=== PATIENT | female | born 1955 | race Caucasian/White ===

== ENCOUNTER → 2018-05-01 10:23 | Outpatient (CLI) | payer MEDICARE, OTHER, SELFPAY ==
--- NOTE | 2018-05-01 10:37 | DI.RAD.S_ITS ---
PROCEDURE: XR CHEST 2V INDICATIONS: chest pain TECHNIQUE: 2 views of the chest were acquired. COMPARISON: [facility], , ABDOMEN ACUTE SERIES, 01/27/2018, 10:01. FINDINGS: Surgical changes and devices: Surgical clips right upper quadrant Lungs and pleura: No pleural effusions or pneumothorax. Lungs are clear. Mediastinum: Mediastinal contours are normal. Heart size is normal. Bones and chest wall: No suspicious bony abnormalities. Marked dextroconvex lower thoracic scoliosis. Soft tissues appear unremarkable. IMPRESSION: 1. No acute cardiopulmonary abnormality. 2. Scoliosis. Dictated by: Andrea Robles M.D. on 05/01/2018 at 10:51 Approved by: Andrea Robles M.D. on 05/01/2018 at 10:53
[2018-05-01 10:51] LABS: Hematocrit 39.7 % (36-46); Hemoglobin 13.3 g/dL (12.0-16.0); Mean Corpuscular HGB Conc 33.6 % (30-36); Mean Corpuscular Hemoglobin 30.4 PG (26-34); Mean Corpuscular Volume 90.2 fL (80-100); Platelet Count 202 X10^3/uL (150-400); Red Cell Distribution Width 13.3 % (11.6-14.8)
[2018-05-01 11:02] LABS: Anisocytosis 1+; Neutrophils Absolute Manual 2550 /uL (3000-5900); Poikilocytosis 1+; Total Cells Counted 100
[2018-05-01 11:15] LABS: Alanine Aminotransferase 21 IU/L (9-52); Albumin 3.9 g/dL (3.5-5.0); Albumin Globulin Ratio 1.3 (1.0-2.8); Alkaline Phosphatase 60 U/L (38-126); Aspartate Aminotransferase 24 IU/L (14-36); BUN Creatinine Ratio 22.5 (6-22); Bilirubin Total 0.3 mg/dL (0.2-1.3); Blood Urea Nitrogen 18 mg/dL (7-17); Calcium 9.2 mg/dL (8.4-10.2); Carbon Dioxide 28 mmol/L (22-32); Chloride 107 mmol/L (98-107); Estimated Glomerular Filt Rate > 60.0 mL/min (>60); Glucose 108 mg/dL (80-110); HEMOLYSIS < 15 (0-50); Potassium 3.9 mmol/L (3.4-5.1); Sodium 143 mmol/L (137-145); Total Protein 6.9 g/dL (6.3-8.2)
[2018-05-01 11:42] LABS: TSH w/ Reflex to FT4 3.17 uIU/mL (0.47-4.68)
== END ==
PROVIDERS: Family Provider Family Medicine; PCP Family Medicine; Visit Provider Family Medicine
DX: R07.9 Chest pain, unspecified (principal); R00.2 Palpitations
CPT/HCPCS: 36415; 71046; 80053; 84443; 85025

== ENCOUNTER → 2018-05-19 13:05 | Outpatient (CLI) | payer MEDICARE, OTHER, SELFPAY ==
--- NOTE | 2018-05-19 17:07 | PM.TREADMILL ---
Cardiac Stress Test Report Referral & Results Date Patient Seen: 05/19/18 Requesting provider: Karuna Langley Indication: Chest pain Rest ECG: Unremarkable Procedure Note: Today following both written and verbal informed consent the patient was exercised according to a standard Delroy protocol patient went for a total of 6 min 1 sec achieving a maximum heart rate of 153 maximum systolic blood pressure of 150 to. This is approximately 7.0 METS. Exercise was terminated at this point because of inability the patient to continue. Patient was also given Cardiolite through a previously started Hep-Lock IV by the non licensed nuclear plant operator approximately 1 minute prior to the cessation of exercise. There are no ST-T segment changes Normal heart rate and blood pressure response Functional aerobic impairment rated 0 on the active scale No obvious dysrhythmias. Lots of motion artifact during exercise portion of test making subtle dysrhythmia difficult to identify Impression: No ischemic changes Await perfusion imaging which will be reported separately Please note: Actual ECG tracings can be found in the PACS system.
--- NOTE | 2018-05-23 07:56 | DI.NM.S_ITS ---
DATE OF SERVICE: 05/19/2018 PROCEDURE: Exercise perfusion study. INDICATIONS: Chest pain with family history of coronary artery disease. RADIOPHARMACEUTICAL: 25.0 mCi technetium-99m Myoview IV was injected at stress and 24.3 mCi technetium-99m Myoview IV was injected at rest. CARDIAC STRESS: Patient underwent exercise perfusion study under the supervision of an attending staff using a standard Delroy protocol. Patient walked on Delroy protocol for about 6 minutes 01 seconds and achieved maximum heart rate of 153 which was 99% of target heart rate with normal blood pressure response. Patient fell fatigue during exercise. Baseline EKG revealed sinus rhythm. During stress, there was no obvious inducible ischemic changes. Baseline EKG also revealed RsR-complex in V1 to V2 and inferiorly with overall low-voltage complexes. No new significant arrhythmias seen. Patient achieved 7 METs of workload, positive 5% of functional aerobic impairment. RAW DATA: There was an increase of diaphragmatic activity. GATED STUDY: Stress LV ejection fraction 94 and resting LV ejection fraction 91%. No obvious wall motion abnormalities. Resting LV end-diastolic volume is 43 mL. No transient ischemic dilatation. TID ratio is 0.61, which is within normal limits. Lung/heart ratio is 0.38, which is within normal limits. MYOCARDIAL PERFUSION SCAN: Resting supine images revealed small-sized mildly decreased perfusion of inferior wall, inferoapex which got resolved during prone images. Stress supine images also revealed normal myocardial perfusion. CONCLUSION: This is a normal myocardial perfusion study. Patient walked on Delroy protocol for about 6 minutes 01 seconds and achieved 99% of target heart rate and normal blood pressure response. No obvious ischemic changes. As far as perfusion scan is concerned, this is a low-risk myocardial perfusion scan. Kim Rico - COUNTY ATTORNEY/jeffery/ab doc#: [id number]/job#: [id number] dd: 05/22/2018 16:23:00 dt: 05/22/2018 16:32:00 DICTATING MD/COPIES TO: Mihai Bird MD COPIES MNE: KETURAH
== END ==
PROVIDERS: PCP Family Medicine; Visit Provider Family Medicine
DX: R07.9 Chest pain, unspecified (principal)
CPT/HCPCS: 78452; 93016; 93017; 93018; A9502

== ENCOUNTER → 2018-07-25 11:59 | Outpatient (CLI) | payer MEDICARE, OTHER, SELFPAY ==
--- NOTE | 2018-08-11 16:23 | P.HOLT.S_ITS ---
Central Station Operator Report Referral & Results Date Patient Seen: 07/25/18 Requesting provider: Martha Chowdary Indication: Palpitations Duration of monitoring (days): 7 Diary information: There were no patient diary entries There is 1 triggered events associated with sinus rhythm and a PAC Data: Minimum heart rate identified was 60 beats per minute at 01:38 on 2017 Maximum heart rate was 152 beats per minute at 11:22 on 07/26/2018 There were no PVCs identified For PACs were rare comprising less than 1% of identified beats There was 1 run of a atrial tachycardia that was 8 beats in duration at a rate of 132 beats per minute 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 No etiology for patient's reported symptom of palpitations identified with this study.
== END ==
PROVIDERS: PCP Family Medicine; Visit Provider Nurse Practitioner Family
DX: R00.2 Palpitations (principal)
CPT/HCPCS: 0296T; 0298T

== ENCOUNTER → 2018-12-13 11:27 | Outpatient (CLI) | payer MEDICARE, OTHER, SELFPAY ==
[2018-12-13 12:05] LABS: Influenza A and B by PCR Rapid Negative (Negative)
== END ==
PROVIDERS: PCP Family Medicine; Visit Provider Nurse Practitioner
DX: R05 Cough (principal); R50.9 Fever, unspecified
CPT/HCPCS: 87400

== ENCOUNTER → 2018-12-13 11:42 | Outpatient (CLI) | payer MEDICARE, OTHER, SELFPAY ==
--- NOTE | 2018-12-13 11:44 | DI.RAD.S_ITS ---
PROCEDURE: XR CHEST 2V INDICATIONS: Productive cough x1 week, febrile illness, chills TECHNIQUE: 2 views of the chest were acquired. COMPARISON: [facility], MUKESH, XR CHEST 2V, 05/01/2018, 10:16. [facility], MUKESH, CHEST FOR PICC PLACEMENT, 05/10/2017, 18:35. FINDINGS: Surgical changes and devices: None. Lungs and pleura: Lungs are clear. No pleural effusions or pneumothorax. Mediastinum: Mediastinal contours are normal. Heart size is normal. Bones and chest wall: No suspicious bony abnormalities. Soft tissues appear unremarkable. IMPRESSION: Normal for age, source of current cough symptoms is not seen. Stable appearing dextroscoliosis centered at the junction of the middle and lower thirds of the thoracic spine. Dictated by: Herb Garcia M.D. on 12/13/2018 at 13:03 Approved by: Herb Garcia M.D. on 12/13/2018 at 13:04
== END ==
PROVIDERS: PCP Family Medicine; Visit Provider Nurse Practitioner
DX: R05 Cough (principal); M41.84 Other forms of scoliosis, thoracic region; R50.9 Fever, unspecified
CPT/HCPCS: 71046; 87400

== ENCOUNTER → 2019-01-29 12:45 | Outpatient (CLI) | payer MEDICARE, OTHER, SELFPAY ==
--- NOTE | 2019-01-29 12:47 | DI.RAD.S_ITS ---
PROCEDURE: XR FOOT RT MIN 3V INDICATIONS: right heel pain TECHNIQUE: 3 views of the foot were acquired. COMPARISON: None. FINDINGS: Bones: No fractures or dislocations. No suspicious bony lesions. Soft tissues: No tibiotalar joint effusion. Achilles tendon appears normal. IMPRESSION: There is a small plantar fascial insertion spur at the posterior calcaneus, and no trauma found. Dictated by: Herb Garcia M.D. on 01/29/2019 at 13:48 Approved by: Herb Garcia M.D. on 01/29/2019 at 13:48
--- NOTE | 2019-01-29 12:47 | DI.MG.S_ITS ---
BILATERAL DIGITAL SCREENING MAMMOGRAM 3D/2D WITH CAD: 01/29/2019 CLINICAL: Routine screening. Comparison is made to exam dated: 08/20/2013 mammogram - [facility]. There are scattered fibroglandular elements in both breasts. Current study was also evaluated with a Computer Aided Detection (CAD) system. No significant masses, calcifications, or other findings are seen in either breast. There has been no significant interval change. IMPRESSION: NEGATIVE There is no mammographic evidence of malignancy. A 1 year screening mammogram is recommended. This exam was interpreted at Station ID: [id number]. NOTE: For mammograms, a report in lay terms will be sent to the patient. Approximately 15% of breast malignancies will not be visualized mammographically. In the management of a palpable breast mass, a negative mammogram must not discourage biopsy of a clinically suspicious lesion. Electronically Signed By: Kathy pagan/ana:01/29/2019 16:25:42 letter sent: Normal Exam ACR BI-RADS Category 1: Negative [id number]
== END ==
PROVIDERS: PCP Family Medicine; Visit Provider Family Medicine
DX: Z12.31 Encounter for screening mammogram for malignant neoplasm of breast (principal); M79.671 Pain in right foot; M77.31 Calcaneal spur, right foot; M81.0 Age-related osteoporosis without current pathological fracture; Z78.0 Asymptomatic menopausal state; Z82.62 Family history of osteoporosis
CPT/HCPCS: 73630; 77063; 77067; 77080

== ENCOUNTER → 2019-03-01 10:15 | Outpatient (CLI) | payer MEDICARE, OTHER, SELFPAY ==
[2019-03-01 11:29] LABS: Alanine Aminotransferase 20 IU/L (9-52); Albumin Globulin Ratio 1.4 (1.0-2.8); Alkaline Phosphatase 58 U/L (38-126); Aspartate Aminotransferase 24 IU/L (14-36); Bilirubin Total 0.5 mg/dL (0.2-1.3); Blood Urea Nitrogen 16 mg/dL (7-17); Calcium 9.5 mg/dL (8.4-10.2); Carbon Dioxide 29 mmol/L (22-32); Chloride 105 mmol/L (98-107); Estimated Glomerular Filt Rate > 60.0 mL/min (>60); Globulin 2.9 g/dL (1.7-4.1); Glucose 80 mg/dL (80-110); HEMOLYSIS < 15 (0-50); Potassium 4.4 mmol/L (3.4-5.1); Sodium 140 mmol/L (137-145); Total Protein 6.9 g/dL (6.3-8.2)
[2019-03-01 11:39] LABS: Vitamin D 25 Hydroxy (D3) 30.3 ng/mL (30.0-100.0)
== END ==
PROVIDERS: PCP Family Medicine; Visit Provider Family Medicine
DX: M81.0 Age-related osteoporosis without current pathological fracture (principal)
CPT/HCPCS: 36415; 80053; 82306

== ENCOUNTER → 2019-11-29 09:17 | Outpatient (CLI) | payer MEDICARE, OTHER, SELFPAY ==
--- NOTE | 2019-11-29 09:19 | DI.MRI.S_ITS ---
PROCEDURE: MR HEAD/BRAIN WO/W CON INDICATIONS: increase in headaches and intensity TECHNIQUE: Noncontrast axial T1 spin echo, axial T2 fast spin echo, sagittal and axial FLAIR, coronal T2 fast spin echo, axial gradient echo, axial diffusion and ADC through the brain. After the administration of contrast, axial and coronal T1 spin echo with fat saturation through the brain. COMPARISON: None. FINDINGS: Image quality: Excellent. CSF spaces: Basal cisterns are patent. No extra-axial fluid collections. Ventricles are normal in size and shape. Brain: No midline shift. No intracranial bleeds or masses. No abnormal intracranial enhancement. There is cerebral volume loss for age. There is periventricular white matter chronic small vessel ischemic change. The brainstem appears normal. Diffusion-weighted images demonstrate no acute ischemic insults. No chronic ischemic insults. Normal intravascular flow voids are present. Skull and face: Calvarial marrow is normal in signal. Orbits appear normal. Sinuses: Sinuses and mastoids appear clear. The right sided barby bullosa is seen. There is mild to moderate leftward nasal septal deviation incidentally noted. IMPRESSION: Unremarkable intracranial study, without an imaging explanation found for the patient's presenting history of headache. Dictated by: Дмитрий Mcmillan M.D. on 11/29/2019 at 9:19 Approved by: Дмитрий Mcmillan M.D. on 11/29/2019 at 9:29
== END ==
PROVIDERS: PCP Family Medicine; Referring Provider Family Medicine; Visit Provider Family Medicine
DX: G43.909 Migraine, unspecified, not intractable, without status migrainosus (principal)
CPT/HCPCS: 70553

== ENCOUNTER → 2020-01-31 10:15 | Outpatient (CLI) | payer MEDICARE, OTHER, SELFPAY ==
[2020-01-31 11:29] LABS: Add Manual Diff / Slide Review NO; Basophils Absolute Auto 0 /uL (0-100); Basophils Percent Auto 0.6 % (0-2); Eosinophils Absolute Auto 200 /uL (0-450); Eosinophils Percent Auto 3.2 % (2-4); Hematocrit 40.2 % (36-46); Hemoglobin 13.9 g/dL (12.0-16.0); Lymphocytes Absolute Auto 1600 /uL (1100-4500); Lymphocytes Percent Auto 29.1 % (25-40); Mean Corpuscular HGB Conc 34.5 % (30-36); Mean Corpuscular Hemoglobin 31.6 PG (26-34); Mean Corpuscular Volume 91.6 fL (80-100); Monocytes Absolute Auto 500 /uL (0-900); Monocytes Percent Auto 8.4 % (3-14); Neutrophils Absolute Auto 3300 /uL (1500-7000); Neutrophils Percent Auto 58.7 % (50-75); Platelet Count 222 X10^3/uL (150-400); Red Blood Cell Count 4.39 X10^6/uL (4.0-5.2); Red Cell Distribution Width 13.7 % (11.6-14.8); White Blood Cell Count 5.5 X10^3/uL (4.5-11.0)
[2020-01-31 12:08] LABS: Alanine Aminotransferase 20 IU/L (<35); Albumin 3.6 g/dL (3.5-5.0); Albumin Globulin Ratio 1.2 (1.0-2.8); Alkaline Phosphatase 68 U/L (38-126); Aspartate Aminotransferase 23 IU/L (14-36); BUN Creatinine Ratio 25.7 (6-22); Bilirubin Total 0.3 mg/dL (0.2-1.3); Blood Urea Nitrogen 19 mg/dL (7-17); Calcium 9.3 mg/dL (8.4-10.2); Carbon Dioxide 26 mmol/L (22-32); Chloride 108 mmol/L (98-107); Estimated Glomerular Filt Rate > 60.0 mL/min (>60); Globulin 3.1 g/dL (1.7-4.1); Glucose 90 mg/dL (80-110); HEMOLYSIS < 15 (0-50); Potassium 3.9 mmol/L (3.4-5.1); Sodium 139 mmol/L (137-145); Total Protein 6.7 g/dL (6.3-8.2)
[2020-01-31 12:44] LABS: Ferritin 11 ng/mL (11-264)
== END ==
PROVIDERS: PCP Family Medicine; Referring Provider Family Medicine; Visit Provider Family Medicine
DX: L65.9 Nonscarring hair loss, unspecified (principal); R53.83 Other fatigue
CPT/HCPCS: 36415; 80053; 82728; 84443; 85025

== ENCOUNTER 2020-02-11 16:26 | Emergency (ER) | payer MEDICARE, OTHER, SELFPAY ==
[2020-02-11 16:39] VITALS: BP 115/64; PULSE 75; RESP 20; TEMP 36.4; O2SAT 96
[2020-02-11] MEDS: TET,DIPH,PERTUSS(ACELL),VAC/PF 0.5 ML SYRINGE IM (17:33)
--- NOTE | 2020-02-11 17:48 | ED_ITS ---
HPI - Wound/Laceration <MITCHELL Ashford - Last Filed: 02/12/20 00:10> General Chief Complaint: Wound/Laceration Stated Complaint: Has A Hole In Head Time Seen by Provider: 02/11/20 16:53 Source: patient Mode of arrival: Ambulatory Limitations: no limitations History of Present Illness HPI narrative: This is a 64-year-old female, former smoker, who presents to ED with her daughter with chief complain of small laceration to right-sided scalp. Patient reports she was standing too close to the car and when her opened norris back the corner of car door hit her right-side of head. Patient is unsure of last tetanus immunization. Patient denies on blood thinner. Patient denies loss of consciousness, vomiting, vision change, mid cervical tenderness. Patient has been acting her normal since the injury. Related Data Previous Rx's Medication Instructions Recorded sumatriptan succinate 25 mg tablet 25 mg PO QDAY PRN #9 tab 09/04/18 duloxetine 60 mg capsule,delayed 60 mg PO DAILY #90 cap 03/01/19 release duloxetine 30 mg capsule,delayed 30 mg PO DAILY #90 cap 06/04/19 release sumatriptan succinate 100 mg tablet See Rx Instructions PO .COMPLEX 07/12/19 #10 tab trazodone 100 mg tablet See Rx Instructions .ROUTE 07/19/19 .COMPLEX #90 tablet propranolol 120 mg capsule,24 120 mg PO DAILY #60 cap 10/12/19 hr,extended release tramadol 50 mg tablet 50 mg PO DAILY PRN #30 tab 01/31/20 Allergies Allergy/AdvReac Type Severity Reaction Status Date / Time aspirin [ASPIRIN] AdvReac Intermediate stomach Verified 10/23/19 10:41 upset ibuprofen [IBUPROFEN] AdvReac Intermediate stomach Verified 10/23/19 10:41 upset codeine [CODEINE] AdvReac Mild doesn't Verified 10/23/19 10:[address] it makes her feel Review of Systems <MITCHELL Ashford - Last Filed: 02/12/20 00:10> Review of Systems Narrative: General: Denies fever, chills, fatigue, malaise, sweats. HEENT: Denies sinus pain, ear pain, sore throat, difficulty swallowing, dizziness. Respiratory: Denies dyspnea, cough, wheezing, hemoptysis, sputum. Cardiovascular: Denies chest pain, palpitations, orthopnea, edema. Gastrointestinal: Denies nausea, vomiting, abdominal pain, diarrhea, constipation, melena. : Denies dysuria, frequency, incontinence, hematuria, urinary retention. Musculoskeletal: Denies weakness, joint pain or bony pain. Skin: See HPI Neurologic: Denies weakness, (+) headache, numbness, change in speech, confusion, seizures, incoordination. Psychiatric: No concerning psychosocial issues. 12-point review of systems is negative except for those stated above. Patient History <MITCHELL Ashford - Last Filed: 02/12/20 00:10> Medical History Anemia (Resolved 2002) Anxiety (Chronic) Chronic back pain (Chronic ~2001) Depression (Chronic) Fibroids (Resolved 2002) Hayfever (Chronic) Hemorrhoids (Resolved) History of live (Resolved) Insomnia (Chronic) Intussusception (Acute) Migraines (Chronic ~2014) Osteoarthritis (Chronic) Scoliosis (Chronic) Shoulder pain (Chronic) Tinnitus (Chronic) Surgical History Anesthesia (Resolved) History of dilation and curettage (Resolved 2002) History of laparoscopy (Resolved) Hx of cholecystectomy (Acute) S/P cholecystectomy (Resolved) S/P small bowel resection (Resolved) Family History Mother Heart disease CVA (cerebral vascular accident) COPD (chronic obstructive pulmonary disease) Brother Liver failure Brother Drowned Grandmother No problems noted. Grandfather No problems noted. Social History marital status: number of children: 5 household members: spouse lives independently: Yes caregiver/support person: Yes (Daughter, Antonia Oscar) education level: other (GED) occupational status: other (retired) Smoking Status: Former smoker alcohol intake: current (rare) substance use type: does not use Smoking Status: Former smoker Exam <MITCHELL Ashford - Last Filed: 02/12/20 00:10> Narrative Exam Narrative: General appearance: well developed, well nourished, in no acute distress. Head: normocephalic, no step-offs, 1.5 cm laceration in right parietal lobe, tender to palpate, no active bleeding.. ENT: Bilateral auditory canals free from clear drainage. Hearing grossly intact. Nose without bleeding, purulent discharge or drainage. Mucous membrane moist, no mucosal lesion. Throat without erythema, tonsillar hypertrophy or exudate. Uvula in midline, airway patent. Neck/Thyroid: neck supple, full range of motion, no visible masses or meningeal signs, no step-offs. No JVD, non-tender without lymphadenopathy. Skin: Approximate 1.5 cm laceration to right parietal lobe. No suspicious rashes, lesions over other visible areas. Warm and dry and appropriate color for ethnicity. Heart: no clubbing, no cyanosis, no edema. S1 and S2 normal. RRR w/o murmurs, clicks, or bruits. Lungs: Breathing even and unlabored. No stridor. No accessory muscles used. Able to speak in full sentences. Chest: normal shape and expansion. Abdomen: non-obese, non-distended. Neurologic: alert and oriented. 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 Psych: good eye contact, normal affect. Initial Vital Signs Initial Vital Signs: Vital Signs Temperature 97.5 F L 02/11/20 16:39 Pulse Rate 75 02/11/20 16:39 Respiratory Rate 20 02/11/20 16:39 Blood Pressure 115/64 02/11/20 16:39 Pulse Oximetry 96 02/11/20 16:39 <Brandon Petty MD - Last Filed: 02/12/20 08:27> Initial Vital Signs Initial Vital Signs: Vital Signs Temperature 97.5 F L 02/11/20 16:39 Pulse Rate 75 02/11/20 16:39 Respiratory Rate 20 02/11/20 16:39 Blood Pressure 115/64 02/11/20 16:39 Pulse Oximetry 96 02/11/20 16:39 Procedures <MITCHELL Ashford - Last Filed: 02/12/20 00:10> Laceration Repair Laceration 1: Site: scalp Side (If applicable): right (Parietal lobe) Size (cm): 1.5 Description: irregular Local Anesthetic: lidocaine 1% and with bicarb Amount of anesthesia used (mL): 2 Pre-repair: wound explored and irrigated extensively Skin layer closed with: j[place] (2) Scores <MITCHELL Ashford - Last Filed: 02/12/20 00:10> GCS Von coma scale eye opening: Spontaneous Elliott coma scale verbal response: Orientated Von coma scale motor response: Obey commands Von coma scale total score: 15 Course <MITCHELL Ashford - Last Filed: 02/12/20 00:10> Orders Ordered: Discontinued Medications Bacitracin (Bacitracin) 1 applic TOP NOW ONE Stop: 02/11/20 17:19 Diphtheria/Tetanus/Acell Pertussis (Adacel) 0.5 ml IM .ONCE ONE Stop: 02/11/20 17:19 Last Admin: 02/11/20 17:33 Dose: 0.5 ml Documented by: BELGICA Lidocaine/Sodium Bicarbonate (Buffered Lidocaine 10 Ml Syr) 10 ml INJ NOW ONE Stop: 02/11/20 17:19 Vital Signs Vital signs: Vital Signs - 8 hr 02/11/20 16:39 Temperature 97.5 F L Pulse Rate 75 Respiratory Rate 20 Blood Pressure 115/64 Pulse Oximetry 96 <Brandon Petty MD - Last Filed: 02/12/20 08:27> Orders Ordered: Discontinued Medications Bacitracin (Bacitracin) 1 applic TOP NOW ONE Stop: 02/11/20 17:19 Diphtheria/Tetanus/Acell Pertussis (Adacel) 0.5 ml IM .ONCE ONE Stop: 02/11/20 17:19 Last Admin: 02/11/20 17:33 Dose: 0.5 ml Documented by: BELGICA Lidocaine/Sodium Bicarbonate (Buffered Lidocaine 10 Ml Syr) 10 ml INJ NOW ONE Stop: 02/11/20 17:19 Vital Signs Vital signs: Vital Signs - 8 hr 02/11/20 16:39 Temperature 97.5 F L Pulse Rate 75 Respiratory Rate 20 Blood Pressure 115/64 Pulse Oximetry 96 MDM - Wound/Laceration <MITCHELL Ashford - Last Filed: 02/12/20 00:10> Differential Diagnosis Differential diagnosis: Likely laceration and other (Closed head injury, scalp contusion, skull fracture) Medical Records Attestation: I reviewed the patient's medical records. MDM Narrative Medical decision making narrative: This is a 64 year female who had injured her right side of scalp with the laceration and contusion on the corner of norris back door when she stood to close to the car when her attempted to open the door. No neurological deficit was appreciated. Surrounding laceration was very tender to palpate without step-offs. Patient denies loss of consciousness, vision change, vomiting, unusual behavior, seizures. Laceration has been repaired with two j[place]ica and please see procedure and note. Bacitracin has been applied on affected site and return precautions were discussed with the patient including closed head injury precaution. Tdap has been updated today and staple removal in 7-10 days. Patient advised to use ice pack for next couple of days and to use [id number] Tylenol for pain management as needed. Patient verbalized understanding and in agreement with the treatment plan. Discharge Plan Departure Patient Disposition: Home Clinical Impression: Stapled skin wound Laceration of scalp Qualifiers: Encounter type: initial encounter Qualified Code(s): S01.01XA - Laceration without foreign body of scalp, initial encounter Closed head injury Qualifiers: Encounter type: initial encounter Qualified Code(s): S09.90XA - Unspecified injury of head, initial encounter Discharge Date/Time: 02/11/20 18:01 Instructions: DI for Laceration Repair -- [place], DI for Laceration Repair of the Scalp, DI for Closed Head Injury Activity Restrictions/Additional Instructions: You have been diagnosed with [right-sided parietal lobe scalp laceration approximately 1.5 cm which has been repaired with 2 j[place]. Tdap immunization has been updated today.]. What to do: Please do not get your wound soaked in the water until staple removal. You can shower or wash your hair after 24 hours. Pat dry with clean paper towel and dress it with antibiotic ointment. Please monitor for signs and symptoms for infection such as increasing redness, swelling, warmth, pain, fever, purulent discharge. Monitor for worsening headache, vision change, seizure activity, vomiting, unusual behavior or any acute concerns. If this occurs, please return to ED or follow up with your primary care physician since your wound may be gotten infected. Please follow up with your primary care provider in 2-3 days for recheck wound. Your jamaica should be removed [7-10 ] days. This can be done by your primary provider, walk-in clinic or here in ED. Please keep your wound clean, dry and intact all times. *Take your medications as directed. You can continue to use [id number] antibiotic ointment on affected site. You can take Tylenol for discomfort, 650- 1000 mg up to 3 to 4 times a day as needed. Prescriptions: No Action duloxetine 30 mg capsule,delayed release(DR/EC) 30 mg PO DAILY Qty: 90 RF: 2 duloxetine 60 mg capsule,delayed release(DR/EC) 60 mg PO DAILY Qty: 90 RF: 1 tramadol 50 mg tablet 50 mg PO DAILY PRN (Reason: pain) Qty: 30 RF: 0 trazodone 100 mg tablet See Rx Instructions .ROUTE .COMPLEX Qty: 90 RF: 2 propranolol 120 mg capsule,extended release 24 hr 120 mg PO DAILY Qty: 60 RF: 2 sumatriptan succinate [Imitrex] 25 mg tablet 25 mg PO QDAY PRN (Reason: migraine) Qty: 9 RF: 12 sumatriptan succinate 100 mg tablet See Rx Instructions PO .COMPLEX Qty: 10 RF: 2 Referrals: Rosa Israel DO [Primary Care Provider] -
== END 2020-02-11 18:01 | disposition home or self-care (01) ==
PROVIDERS: Emergency Provider Nurse Practitioner Family; PCP Family Medicine
DX: S01.01XA Laceration without foreign body of scalp, initial encounter (principal); S09.90XA Unspecified injury of head, initial encounter; W22.8XXA Striking against or struck by other objects, initial encounter; Z23 Encounter for immunization
CPT/HCPCS: 12001; 90471; 99283; 90715

== ENCOUNTER → 2020-08-18 11:31 | Outpatient (CLI) | payer MEDICARE, OTHER, SELFPAY ==
--- NOTE | 2020-08-18 11:35 | DI.RAD.S_ITS ---
PROCEDURE: XR CERVICAL SPINE 2V OR 3V INDICATIONS: Right knee pain, suspect arthritis TECHNIQUE: 3 view(s) of the cervical spine were acquired. COMPARISON: None. FINDINGS: Bones: No fractures or dislocations to the C7 level. The lateral masses of C1 appear intact on the odontoid view. No suspicious bony lesions. Mild degenerative change in the cervical spine. No osseous erosions identified. Soft tissues: No prevertebral soft tissue swelling. IMPRESSION: No acute osseous abnormality. Mild degenerative change in the cervical spine. Dictated by: Elroy Narayanan M.D. on 08/18/2020 at 13:10 Approved by: Elroy Narayanan M.D. on 08/18/2020 at 13:12
--- NOTE | 2020-08-18 11:35 | DI.RAD.S_ITS ---
PROCEDURE: XR KNEE RT 3V INDICATIONS: Right knee pain, suspect arthritis TECHNIQUE: 3 views of the knee were acquired. COMPARISON: None. FINDINGS: Bones: No fractures or dislocations. No suspicious bony lesions. No periosteal reaction. No osseous erosion seen. Soft tissues: No joint effusion. No suspicious soft tissue calcifications. IMPRESSION: No significant osseous abnormality. Dictated by: Elroy Narayanan M.D. on 08/18/2020 at 13:30 Approved by: Elroy Narayanan M.D. on 08/18/2020 at 13:31
== END ==
PROVIDERS: PCP Family Medicine; Referring Provider Family Medicine; Visit Provider Family Medicine
DX: M25.561 Pain in right knee (principal); M54.2 Cervicalgia; M47.812 Spondylosis without myelopathy or radiculopathy, cervical region
CPT/HCPCS: 72040; 73562

== ENCOUNTER → 2021-03-17 09:43 | Outpatient (CLI) | payer MEDICARE, OTHER, SELFPAY ==
--- NOTE | 2021-03-17 09:45 | DI.US.S_ITS ---
PROCEDURE: US EXTREMITY NONVASC LOWER RT INDICATIONS: nodule near R lateral knee TECHNIQUE: Real-time scanning was performed of the area of current clinical concern, masslike abnormality adjacent to the proximal tibia right knee which sharp pain., with image documentation. COMPARISON: None FINDINGS: In the area of concern there is a complex masslike structure measuring 0.6 x 1.1 x 1.9 cm. Elevated vascularity is seen adjacent to this structure. The appearance is nonspecific. IMPRESSION: Complex masslike structure with increased peripheral vascularity, a nonspecific finding that warrants contrast-enhanced MR scanning follow-up. Note is made of what appears to be a Narayanan's cyst behind the knee measuring up to 0.6 x 2.0 x 4.3 cm. Dictated by: Herb Garcia M.D. on 03/17/2021 at 12:41 Approved by: Herb Garcia M.D. on 03/17/2021 at 12:43
== END ==
PROVIDERS: PCP Family Medicine; Referring Provider Family Medicine; Visit Provider Family Medicine
DX: R20.0 Anesthesia of skin (principal); R20.2 Paresthesia of skin
CPT/HCPCS: 76882

== ENCOUNTER → 2021-03-31 14:07 | Outpatient (CLI) | payer MEDICARE, OTHER, SELFPAY ==
--- NOTE | 2021-03-31 14:09 | DI.MRI.S_ITS ---
PROCEDURE: MR LOWER LEG RT WO/W CON INDICATIONS: mass of lower R leg TECHNIQUE: Noncontrast coronal T1 spin echo and STIR, sagittal T1 spin echo with fat saturation and STIR, axial T1 spin echo and T2 fast spin echo with fat saturation. After the administration of contrast, axial/sagittal/coronal T1 spin echo with fat saturation through the right lower leg. . COMPARISON: None. FINDINGS: Image quality: Excellent. Bones: There is no marrow edema. No fracture or dislocation. Mild tricompartmental osteoarthritis in right knee is seen with small lateral marginal osteophyte formation. No suspicious bony lesion or area of abnormal enhancement. Soft tissues: Surface skin marker is placed over lateral aspect of proximal right lower leg at the level of lateral tibial plateau. There is normal fat signal seen at the site of the marker. No fluid collection or soft tissue mass is seen. No area of abnormal enhancement is noted. There is small amount of joint effusion. Small popliteal cyst is also seen. The scanned muscles demonstrate normal overall bulk and internal signal. IMPRESSION: 1. Normal fat signal is seen in lateral aspect of right knee/proximal lower leg. No enhancing soft tissue mass or fluid collection is seen. Finding could still represent unencapsulated lipoma in this area suggest clinical correlation and follow-up. 2. Osteoarthritic changes are noted in right knee joints with small lateral marginal osteophyte formation. No marrow edema. No fracture or dislocation. No abnormal intraosseous enhancement. 3. Small amount of joint effusion and a small popliteal cyst. No muscle or tendon signal abnormality is seen. No abnormal intramuscular enhancement. Dictated by: Jovon Torrez M.D. on 03/31/2021 at 16:01 Approved by: Jovon Torrez M.D. on 03/31/2021 at 16:08
== END ==
PROVIDERS: PCP Family Medicine; Referring Provider Family Medicine; Visit Provider Family Medicine
DX: R22.41 Localized swelling, mass and lump, right lower limb (principal); Q74.2 Other congenital malformations of lower limb(s), including pelvic girdle; M71.21 Synovial cyst of popliteal space [Baker], right knee
CPT/HCPCS: 73720

== ENCOUNTER 2021-04-01 16:00 | Outpatient (RCR) | payer MEDICARE, OTHER, SELFPAY ==
--- NOTE | 2021-03-31 12:49 | PT.OIE ---
Current Diagnoses Anesthesia of skin (03/31/21) Paresthesia of skin (03/31/21) Localized swelling, mass and lump, unspecified lower limb (03/31/21) Past Medical History (Last Reviewed 02/24/21 @ 07:16 by Rosa Israel DO) Anemia (2003) Anxiety Chronic back pain (~2001) Depression Fibroids (2002) Hayfever Hemorrhoids History of live Insomnia Intussusception Laceration of scalp Migraines (~2014) Osteoarthritis Scoliosis Shoulder pain Tinnitus Past Surgical History (Last Reviewed 02/24/21 @ 07:16 by Rosa Israel DO) Anesthesia History of dilation and curettage (2002) History of laparoscopy Hx of cholecystectomy S/P cholecystectomy S/P small bowel resection Visit Care Team Role Provider Type Rosa Israel DO Attending Provider Physician Primary Care Provider Referring Provider Specialty: Family [facility] Address: [address] [place] [address], [facility] Email: [email or web address] Physical Therapy Initial Evaluation PT-OP-A Visit Information Start: 03/31/21 07:38 Freq: Status: Active Protocol: Document 03/31/21 09:50 SAK (Rec: 03/31/21 10:28 SAK [id number]) Out-Patient Physical Therapy Visit Information Visit Information Visit Type Initial Evaluation Visit Start Time 09:45 Visit Stop Time 10:40 Total Visit Minutes 55 Visit Number 1 Evaluation Information Evaluation Date 03/31/21 Precautions Precautions PMH: Anemia (2002) Anxiety Chronic back pain (~2001) Depression Fibroids (2002) Hayfever Hemorrhoids History of live Insomnia Intussusception Laceration of scalp Migraines (~2014) Osteoarthritis Scoliosis Shoulder pain Tinnitus Past surgical history: Anesthesia History of dilation and curettage (2002) History of laparoscopy Hx of cholecystectomy S/P cholecystectomy S/P small bowel resection PT-OP-B Current Condition Start: 03/31/21 07:38 Freq: Status: Active Protocol: Document 03/31/21 09:50 SAK (Rec: 03/31/21 10:28 SAK [id number]) Current Condition History of Current Condition Onset Date 1 year Current Complaints function-limiting right knee pain, LBP, right LE pain History of Current Condition Lives with daughter. Has had LBP with radiation into right leg and hip pain for years, worsening over the past year, then had onset right lateral knee pain over this past 6 months, excrutiating pain. Having CT this afternoon due to mass in the area (her chart notes a mass at fibular head. ). Walking is very painful, then down for the next day due to pain. Hasn't used assistive device . Has used heat, makes it feel good for a little while. The pain worse at night, more painful with pillow between knees. Hasn't done any other sort of treatment. Patient lost 1 month ago after a lengthy time on hospice. States she had to help him physically including lifting his leg in and out of bed. Also reports scoliosis, has some lateral trunk pain. No regular exercise. Reports depression and anxiety, not very active since 's . Occasional numbness right LE, no giving way. Prior Treatments and Tests x-ray right knee negative Future Testing and Treatments Planned CT today. Treatment Goals Patient/Caregiver Goals decrease her pain, be able to take walks for exercise again without pain. Prior Functional Status Baseline Function- ADL's Independent Baseline Function- Mobility Independent Baseline Function- Gait Independent without pain Baseline Function- Work/School retired Baseline Function- Recreation/Hobbies no limitations Current Functional Impairments (Reported) Functional Limitations- ADL's painful to stand and walk Functional Limitations- Mobility/Gait painful and limited to 10 min Functional Limitations- Work/School retired Functional Limitations- Recreation/ not able to do due to pain Hobbies Personal Factors Other Personal Factors That May Effect Patient reports depression and Therapy/Recovery anxiety, especially related to her 's 1 month ago. PT-OP-C Subjective Start: 03/31/21 07:38 Freq: Status: Active Protocol: Document 03/31/21 09:50 [facility] (Rec: 03/31/21 16:37 [facility] [id number]) Patient Questionnaires Lower Extremity Functional Scale LEFS Score 49 OP-PT Pain Assessment Location right knee Pain Location Details lateral Intensity 4 Scale Used Numeric (0 - 10) Description Aching,Sharp,Shooting,Stabbing ,Tender Frequency Frequent Pain Aggravating Factors Standing,Walking,Bending Pain Alleviating Factors None Pain Behaviors Pain Behaviors Facial Grimacing,Guarding, Wincing PT-OP-F Manual Assessment Start: 03/31/21 07:38 Freq: Status: Active Protocol: Document 03/31/21 09:50 [facility] (Rec: 03/31/21 16:37 [facility] [id number]) Manual Assessments Soft Tissue Assessment Soft Tissue Mobility Assessment edema without redness or erythema right knee, non- pitting Joint Mobility Assessment Joint Mobility Assessment no pain with distal or proximal tib-fib joint daniela PT-OP-G Mobility & Gait Start: 03/31/21 07:38 Freq: Status: Active Protocol: Document 03/31/21 09:50 [facility] (Rec: 03/31/21 16:37 [facility] [id number]) OP Mobility Evaluation Transfers Sit to Stand painful Functional Movements Squats painful Running Assessment unable OP Gait Assessment Gait Gait Assistance Required: Independent Gait Deviations General Gait Pattern Antalgic,Decreased Stride Length,Decreased Feet Clearance Factors Limiting Gait Function Factors Limiting Gait Function Pain Stair Climbing Evaluation Evaluation Level of Assist On Stairs Independent Technique/Endurance Stair Climbing Direction Ascend and Descend Stair Climbing Technique Step to Step Comments Stair Climbing Comments painful PT-OP-J Posture/Palpation/Skin Start: 03/31/21 07:38 Freq: Status: Active Protocol: Document 03/31/21 09:50 [facility] (Rec: 03/31/21 16:37 [facility] [id number]) Posture Evaluation Position Standing L-Spine Posture Rotation Right,Decreased Lordosis,Flexible Scoliosis on (R) Arm Posture (L) Internally Rotated,(R) Internally Rotated Pelvis Posture Posterior Tilted Weight Distribution Decreased Wt.Bear on (R) Hip Posture (R) Externally Rotated Knee Posture (L) Neutral,(R) Neutral Patellar Posture (R) Laterally Tilted Foot Arch (L) Low Arch,(R) Low Arch Palpation Assessment Location right lateral knee Palpation Findings Edema,Tenderness Palpation Details thickened tissue lateral knee without defined border Skin Assessment Edema Assessment lateral right knee Edema Type Non-Pitting Edema Degree 2+ Edema Appearance Puffy Subjective Edema Description Pain PT-OP-K Range of Motion Start: 03/31/21 07:38 Freq: Status: Active Protocol: Document 03/31/21 09:50 [facility] (Rec: 03/31/21 16:37 [facility] [id number]) Hip Goniometric Range of Motion Hip daniela Hip ROM WFL Yes Knee Goniometric Range of Motion Knee daniela Knee ROM WFL No Comments left WNL. Right knee 110-5 with c/o pain throughout ROM PT-OP-L Special Tests Start: 03/31/21 07:38 Freq: Status: Active Protocol: Document 03/31/21 09:50 SAK (Rec: 03/31/21 16:37 [facility] [id number]) Special Tests Knee Special Tests Richardson Chondromalacia Test Results negative Varus- 0 Degrees Test Results mild pain right Valgus- 0 Degrees Test Results negative Anterior Draw Test Results negative PT-OP-M Strength Start: 03/31/21 07:38 Freq: Status: Active Protocol: Document 03/31/21 09:50 SAK (Rec: 03/31/21 16:37 [facility] [id number]) Trunk Strength Trunk Manual Muscle Testing Testing Position Supine Flexion 2+ Poor+ Extension 2+ Poor+ Core Stabilization poor ability to activate TrA Hip Strength Hip Manual Muscle Testing Right Flexion (L2) 4- Good- Extension (S1) 3+ Fair+ Abduction 3+ Fair+ Adduction 4- Good- External Rotation 4- Good- Internal Rotation 4- Good- Left Flexion (L2) 4 Good Extension (S1) 4- Good- Abduction 4- Good- Adduction 4 Good External Rotation 4- Good- Internal Rotation 4- Good- PT-OP-Q Treatments Start: 03/31/21 07:38 Freq: Status: Active Protocol: Document 03/31/21 09:50 SAK (Rec: 03/31/21 16:37 [facility] [id number]) Self-Care/Home Management Treatment Education Patient Education Body Mechanics,Home Exercise Program,Pain Management, Posture Other Education start slow with resuming prior HEP; PT marked first 5 exercises to start with. PT-OP-R Modalities Start: 03/31/21 07:38 Freq: Status: Active Protocol: Document 04/01/21 12:48 [facility] (Rec: 04/01/21 12:49 [facility] [id number]) Hot Pack/Cold Pack Treatment Cold Pack Location right knee Patient Position Hooklying Treatment Duration (minutes) 10 Hot Pack Location lumbar spine Patient Position Hooklying Treatment Duration (minutes) 15 Patient Tolerance Good PT-OP-T Assessment and Plan Start: 03/31/21 07:38 Freq: Status: Active Protocol: Document 03/31/21 09:50 SAK (Rec: 03/31/21 16:37 [facility] [id number]) Physical Therapy Assessment Rehab Potential Rehabilitation Potential Good Evaluation Complexity Number of Personal Factors/Comorbidities 1-2 Number of Body Systems Impaired 3 Clinical Presentation at Evaluation Evolving Impairments Impairments Activity Tolerance,Pain, Strength Goals Four Impairment weakness Short Term Goal (STG) Patient to be independent in progressive HEP for LE and core strengthening, stabilization, and flexibility for long-term fitness and pain management. STG Duration 05/10/20 Custodial Goal (LTG) Patient will demonstrate improvement in strength throughout right LE and core to at least 4+/5 LTG Duration 06/29/21 Three Impairment Patient unable to walk more than 10 min without an increase in pain Custodial Goal (LTG) Patient will be able to walk 1 mile as previously with pain no greater than 2/10 LTG Duration 06/29/21 Two Impairment lower extremity functional scale score 49% Short Term Goal (STG) Improve LEFS to at least 60% STG Duration 05/10/20 Offset Pressman Goal (LTG) Improve LEFS to at least 75% LTG Duration 06/29/21 One Impairment Pain right knee, LE, buttock and low back 4/10, increases with activity Offset Pressman Goal (LTG) Decrease pain to no greater than 2/10 with all usual activities LTG Duration 06/29/21 Assessment Summary Assessment Patient presents with function -limiting pain right SI and lateral hips, and lateral right knee. Patient having MRI right knee today, report not in yet. Patient very tender to touch right lateral knee with swelling of knee joint and area of swelling with increased tissue thickness poorly defined. No pain with mobilization at prox or distal tib-fib joint. 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 Patient has weakness throughout her hips, lumbosacral region, and core musculature, and has had multiple abdominal surgeries. She has scoliosis as well which appears contributory. Due to 's illness patient had been physically assisting him and also not doing any regular exercise for strengthening and flexibility . She verbalizes depression and anxiety, has medication for sleep. Feel she would benefit from physical therapy to improve her strength, flexibility, and core stabilization and decrease her pain. Patient is in agreement with POC. Demonstrated good undertstanding of HEP. Physical Therapy Plan Frequency and Duration Frequency of Treatment 2x/Week Duration of Treatment 12 weeks Plan of Care Start Date 03/31/21 Plan of Care End Date 06/29/21 Therapeutic Interventions Therapeutic Interventions Aquatic Therapy,Home Exercise Program,Joint Mobilizations, Manual Therapy,Neuromuscular Re-education,Patient/Caregiver Education,Self-Care/Home Management,Soft Tissue Mobilization,Taping, Therapeutic Activities, Therapeutic Exercises Modalities Cold Pack/Ice Massage,Electric Stimulation,Hot Packs, Infrared Therapy,Iontophoresis ,Ultrasound Next Visit Focus/Plan Next Note Type Treatment Note Next Visit Plan Start with Sci-Fit for gentle ROM and strengthening with postural emphasis. Review HEP , progress as indicated. Add gluteal set, quad set, hamstring set. Consider kinesiotape especially to right knee pending outcome of MRI. End with ice or heat as indicated.
--- NOTE | 2021-04-01 16:58 | PT.OTN ---
Current Diagnoses Anesthesia of skin (04/01/21) Paresthesia of skin (04/01/21) Localized swelling, mass and lump, unspecified lower limb (04/01/21) Physical Therapy Treatment Note PT-OP-A Visit Information Start: 03/31/21 07:38 Freq: Status: Active Protocol: Document 04/01/21 16:09 MA (Rec: 04/01/21 16:57 MA [id number]) Out-Patient Physical Therapy Visit Information Visit Information Visit Type Treatment Note Visit Start Time 16:05 Visit Stop Time 16:45 Total Visit Minutes 40 Visit Number 2 Number of UTILITY DIVISION PROJECT MANAGER Visits 1 Precautions Precautions PMH: Anemia (2002) Anxiety Chronic back pain (~2001) Depression Fibroids (2002) Hayfever Hemorrhoids History of live Insomnia Intussusception Laceration of scalp Migraines (~2014) Osteoarthritis Scoliosis Shoulder pain Tinnitus Past surgical history: Anesthesia History of dilation and curettage (2002) History of laparoscopy Hx of cholecystectomy S/P cholecystectomy S/P small bowel resection PT-OP-B Current Condition Start: 03/31/21 07:38 Freq: Status: Active Protocol: Document 03/31/21 09:50 SAK (Rec: 03/31/21 10:28 SAK [id number]) Current Condition History of Current Condition Onset Date 1 year Current Complaints function-limiting right knee pain, LBP, right LE pain History of Current Condition Lives with daughter. Has had LBP with radiation into right leg and hip pain for years, worsening over the past year, then had onset right lateral knee pain over this past 6 months, excrutiating pain. Having CT this afternoon due to mass in the area (her chart notes a mass at fibular head. ). Walking is very painful, then down for the next day due to pain. Hasn't used assistive device . Has used heat, makes it feel good for a little while. The pain worse at night, more painful with pillow between knees. Hasn't done any other sort of treatment. Patient lost 1 month ago after a lengthy time on hospice. States she had to help him physically including lifting his leg in and out of bed. Also reports scoliosis, has some lateral trunk pain. No regular exercise. Reports depression and anxiety, not very active since 's . Occasional numbness right LE, no giving way. Prior Treatments and Tests x-ray right knee negative Future Testing and Treatments Planned CT today. Treatment Goals Patient/Caregiver Goals decrease her pain, be able to take walks for exercise again without pain. Prior Functional Status Baseline Function- ADL's Independent Baseline Function- Mobility Independent Baseline Function- Gait Independent without pain Baseline Function- Work/School retired Baseline Function- Recreation/Hobbies no limitations Current Functional Impairments (Reported) Functional Limitations- ADL's painful to stand and walk Functional Limitations- Mobility/Gait painful and limited to 10 min Functional Limitations- Work/School retired Functional Limitations- Recreation/ not able to do due to pain Hobbies Personal Factors Other Personal Factors That May Effect Patient reports depression and Therapy/Recovery anxiety, especially related to her 's 1 month ago. PT-OP-C Subjective Start: 03/31/21 07:38 Freq: Status: Active Protocol: Document 04/01/21 16:09 MA (Rec: 04/01/21 16:57 MA [id number]) OP-PT Subjective Patient Comments Patient Comments Pt does not have MRI results. Her knee is still sore. PT-OP-F Manual Assessment Start: 03/31/21 07:38 Freq: Status: Active Protocol: Document 03/31/21 09:50 SAK (Rec: 03/31/21 16:37 SAK [id number]) Manual Assessments Soft Tissue Assessment Soft Tissue Mobility Assessment edema without redness or erythema right knee, non- pitting Joint Mobility Assessment Joint Mobility Assessment no pain with distal or proximal tib-fib joint daniela PT-OP-G Mobility & Gait Start: 03/31/21 07:38 Freq: Status: Active Protocol: Document 03/31/21 09:50 SAK (Rec: 03/31/21 16:37 SAK [id number]) OP Mobility Evaluation Transfers Sit to Stand painful Functional Movements Squats painful Running Assessment unable OP Gait Assessment Gait Gait Assistance Required: Independent Gait Deviations General Gait Pattern Antalgic,Decreased Stride Length,Decreased Feet Clearance Factors Limiting Gait Function Factors Limiting Gait Function Pain Stair Climbing Evaluation Evaluation Level of Assist On Stairs Independent Technique/Endurance Stair Climbing Direction Ascend and Descend Stair Climbing Technique Step to Step Comments Stair Climbing Comments painful PT-OP-J Posture/Palpation/Skin Start: 03/31/21 07:38 Freq: Status: Active Protocol: Document 03/31/21 09:50 SAK (Rec: 03/31/21 16:37 [facility] [id number]) Posture Evaluation Position Standing L-Spine Posture Rotation Right,Decreased Lordosis,Flexible Scoliosis on (R) Arm Posture (L) Internally Rotated,(R) Internally Rotated Pelvis Posture Posterior Tilted Weight Distribution Decreased Wt.Bear on (R) Hip Posture (R) Externally Rotated Knee Posture (L) Neutral,(R) Neutral Patellar Posture (R) Laterally Tilted Foot Arch (L) Low Arch,(R) Low Arch Palpation Assessment Location right lateral knee Palpation Findings Edema,Tenderness Palpation Details thickened tissue lateral knee without defined border Skin Assessment Edema Assessment lateral right knee Edema Type Non-Pitting Edema Degree 2+ Edema Appearance Puffy Subjective Edema Description Pain PT-OP-K Range of Motion Start: 03/31/21 07:38 Freq: Status: Active Protocol: Document 03/31/21 09:50 SAK (Rec: 03/31/21 16:37 [facility] [id number]) Hip Goniometric Range of Motion Hip daniela Hip ROM WFL Yes Knee Goniometric Range of Motion Knee daniela Knee ROM WFL No Comments left WNL. Right knee 110-5 with c/o pain throughout ROM PT-OP-L Special Tests Start: 03/31/21 07:38 Freq: Status: Active Protocol: Document 03/31/21 09:50 SAK (Rec: 03/31/21 16:37 [facility] [id number]) Special Tests Knee Special Tests Richardson Chondromalacia Test Results negative Varus- 0 Degrees Test Results mild pain right Valgus- 0 Degrees Test Results negative Anterior Draw Test Results negative PT-OP-M Strength Start: 03/31/21 07:38 Freq: Status: Active Protocol: Document 03/31/21 09:50 SAK (Rec: 03/31/21 16:37 [facility] [id number]) Trunk Strength Trunk Manual Muscle Testing Testing Position Supine Flexion 2+ Poor+ Extension 2+ Poor+ Core Stabilization poor ability to activate TrA Hip Strength Hip Manual Muscle Testing Right Flexion (L2) 4- Good- Extension (S1) 3+ Fair+ Abduction 3+ Fair+ Adduction 4- Good- External Rotation 4- Good- Internal Rotation 4- Good- Left Flexion (L2) 4 Good Extension (S1) 4- Good- Abduction 4- Good- Adduction 4 Good External Rotation 4- Good- Internal Rotation 4- Good- PT-OP-Q Treatments Start: 03/31/21 07:38 Freq: Status: Active Protocol: Document 04/01/21 16:09 MA (Rec: 04/01/21 16:57 MA [id number]) Cardio Equipment Recumbent Stepper (Sci-Fit) Duration (Minutes) 5 Resistance 2 Therapeutic Exercises Supine Exercises Hamstring Set Side right Reps/Minutes 10x5 sec Quad Set Side right Reps/Minutes 10x5 sec Glute Set Side bilateral Reps/Minutes 10x 5 sec Abduction Resistance lvl 1 TB Reps/Minutes x10 Adduction Equipment Used small ball Reps/Minutes 10 x 5 sec hold bridges Reps/Minutes x10 Pelvic Tilts Reps/Minutes 10x Piriformis Stretch Side bilateral Reps/Minutes 2x 30 sec Self-Care/Home Management Treatment Education Patient Education Home Exercise Program Other Education HEP: glute set, quad set, HS set- all 10x5 sec hold PT-OP-R Modalities Start: 03/31/21 07:38 Freq: Status: Active Protocol: Document 04/01/21 12:48 SAK (Rec: 04/01/21 12:49 SAK [id number]) Hot Pack/Cold Pack Treatment Cold Pack Location right knee Patient Position Hooklying Treatment Duration (minutes) 10 Hot Pack Location lumbar spine Patient Position Hooklying Treatment Duration (minutes) 15 Patient Tolerance Good PT-OP-T Assessment and Plan Start: 03/31/21 07:38 Freq: Status: Active Protocol: Document 04/01/21 16:09 MA (Rec: 04/01/21 16:57 MA [id number]) Physical Therapy Assessment Goals Four Impairment weakness Short Term Goal (STG) Patient to be independent in progressive HEP for LE and core strengthening, stabilization, and flexibility for long-term fitness and pain management. STG Duration 05/10/20 Half-Way Goal (LTG) Patient will demonstrate improvement in strength throughout right LE and core to at least 4+/5 LTG Duration 06/29/21 Three Impairment Patient unable to walk more than 10 min without an increase in pain Half-Way Goal (LTG) Patient will be able to walk 1 mile as previously with pain no greater than 2/10 LTG Duration 06/29/21 Two Impairment lower extremity functional scale score 49% Short Term Goal (STG) Improve LEFS to at least 60% STG Duration 05/10/20 Solidworks Designer Goal (LTG) Improve LEFS to at least 75% LTG Duration 06/29/21 One Impairment Pain right knee, LE, buttock and low back 4/10, increases with activity Solidworks Designer Goal (LTG) Decrease pain to no greater than 2/10 with all usual activities LTG Duration 06/29/21 Assessment Summary Assessment Pt arrives with lateral R knee pain. She has not received her MRI results yet from doctor. Added glute set, quad set, and hamstring set to HEP exercises. Pt is able to review old HEP exercises with minimal cues for form and has no increase in pain when using recumbant stepper. Will end with ice pack next sesion. Physical Therapy Plan Frequency and Duration Frequency of Treatment 2x/Week Duration of Treatment 12 weeks Plan of Care Start Date 03/31/21 Plan of Care End Date 06/29/21 Therapeutic Interventions Therapeutic Interventions Aquatic Therapy,Home Exercise Program,Joint Mobilizations, Manual Therapy,Neuromuscular Re-education,Patient/Caregiver Education,Self-Care/Home Management,Soft Tissue Mobilization,Taping, Therapeutic Activities, Therapeutic Exercises Modalities Cold Pack/Ice Massage,Electric Stimulation,Hot Packs, Infrared Therapy,Iontophoresis ,Ultrasound Next Visit Focus/Plan Next Note Type Treatment Note Next Visit Plan Start with Sci-Fit for gentle ROM and strengthening with postural emphasis. Review HEP , progress as indicated. Consider kinesiotape especially to right knee pending outcome of MRI. End with ice or heat as indicated.
--- NOTE | 2021-04-07 16:25 | PT.OPDS ---
Current Diagnoses Anesthesia of skin (04/01/21) Paresthesia of skin (04/01/21) Localized swelling, mass and lump, unspecified lower limb (04/01/21) Visit Care Team Role Provider Type Rosa Israel DO Attending Provider Physician Primary Care Provider Referring Provider Specialty: Family Practice Address: [address] [place] [address], [facility] [place], [address] Email: [email or web address] Visit Number Visit Number 2 Discharge Summary PT-OP-B Current Condition Start: 03/31/21 07:38 Freq: Status: Active Protocol: Document 03/31/21 09:50 SAK (Rec: 03/31/21 10:28 SAK [id number]) Current Condition History of Current Condition Onset Date 1 year Current Complaints function-limiting right knee pain, LBP, right LE pain History of Current Condition Lives with daughter. Has had LBP with radiation into right leg and hip pain for years, worsening over the past year, then had onset right lateral knee pain over this past 6 months, excrutiating pain. Having CT this afternoon due to mass in the area (her chart notes a mass at fibular head. ). Walking is very painful, then down for the next day due to pain. Hasn't used assistive device . Has used heat, makes it feel good for a little while. The pain worse at night, more painful with pillow between knees. Hasn't done any other sort of treatment. Patient lost 1 month ago after a lengthy time on hospice. States she had to help him physically including lifting his leg in and out of bed. Also reports scoliosis, has some lateral trunk pain. No regular exercise. Reports depression and anxiety, not very active since 's . Occasional numbness right LE, no giving way. Prior Treatments and Tests x-ray right knee negative Future Testing and Treatments Planned CT today. Treatment Goals Patient/Caregiver Goals decrease her pain, be able to take walks for exercise again without pain. Prior Functional Status Baseline Function- ADL's Independent Baseline Function- Mobility Independent Baseline Function- Gait Independent without pain Baseline Function- Work/School retired Baseline Function- Recreation/Hobbies no limitations Current Functional Impairments (Reported) Functional Limitations- ADL's painful to stand and walk Functional Limitations- Mobility/Gait painful and limited to 10 min Functional Limitations- Work/School retired Functional Limitations- Recreation/ not able to do due to pain Hobbies Personal Factors Other Personal Factors That May Effect Patient reports depression and Therapy/Recovery anxiety, especially related to her 's 1 month ago. PT-OP-C Subjective Start: 03/31/21 07:38 Freq: Status: Active Protocol: Document 04/01/21 16:09 MA (Rec: 04/01/21 16:57 MA [id number]) OP-PT Subjective Patient Comments Patient Comments Pt does not have MRI results. Her knee is still sore. PT-OP-F Manual Assessment Start: 03/31/21 07:38 Freq: Status: Active Protocol: Document 03/31/21 09:50 SAK (Rec: 03/31/21 16:37 SAK [id number]) Manual Assessments Soft Tissue Assessment Soft Tissue Mobility Assessment edema without redness or erythema right knee, non- pitting Joint Mobility Assessment Joint Mobility Assessment no pain with distal or proximal tib-fib joint daniela PT-OP-G Mobility & Gait Start: 03/31/21 07:38 Freq: Status: Active Protocol: Document 03/31/21 09:50 SAK (Rec: 03/31/21 16:37 SAK [id number]) OP Mobility Evaluation Transfers Sit to Stand painful Functional Movements Squats painful Running Assessment unable OP Gait Assessment Gait Gait Assistance Required: Independent Gait Deviations General Gait Pattern Antalgic,Decreased Stride Length,Decreased Feet Clearance Factors Limiting Gait Function Factors Limiting Gait Function Pain Stair Climbing Evaluation Evaluation Level of Assist On Stairs Independent Technique/Endurance Stair Climbing Direction Ascend and Descend Stair Climbing Technique Step to Step Comments Stair Climbing Comments painful PT-OP-J Posture/Palpation/Skin Start: 03/31/21 07:38 Freq: Status: Active Protocol: Document 03/31/21 09:50 SAK (Rec: 03/31/21 16:37 SAK [id number]) Posture Evaluation Position Standing L-Spine Posture Rotation Right,Decreased Lordosis,Flexible Scoliosis on (R) Arm Posture (L) Internally Rotated,(R) Internally Rotated Pelvis Posture Posterior Tilted Weight Distribution Decreased Wt.Bear on (R) Hip Posture (R) Externally Rotated Knee Posture (L) Neutral,(R) Neutral Patellar Posture (R) Laterally Tilted Foot Arch (L) Low Arch,(R) Low Arch Palpation Assessment Location right lateral knee Palpation Findings Edema,Tenderness Palpation Details thickened tissue lateral knee without defined border Skin Assessment Edema Assessment lateral right knee Edema Type Non-Pitting Edema Degree 2+ Edema Appearance Puffy Subjective Edema Description Pain PT-OP-K Range of Motion Start: 03/31/21 07:38 Freq: Status: Active Protocol: Document 03/31/21 09:50 SAK (Rec: 03/31/21 16:37 SAK [id number]) Hip Goniometric Range of Motion Hip daniela Hip ROM WFL Yes Knee Goniometric Range of Motion Knee daniela Knee ROM WFL No Comments left WNL. Right knee 110-5 with c/o pain throughout ROM PT-OP-L Special Tests Start: 03/31/21 07:38 Freq: Status: Active Protocol: Document 03/31/21 09:50 SAK (Rec: 03/31/21 16:37 SAK [id number]) Special Tests Knee Special Tests Richardson Chondromalacia Test Results negative Varus- 0 Degrees Test Results mild pain right Valgus- 0 Degrees Test Results negative Anterior Draw Test Results negative PT-OP-M Strength Start: 03/31/21 07:38 Freq: Status: Active Protocol: Document 03/31/21 09:50 SAK (Rec: 03/31/21 16:37 [facility] [id number]) Trunk Strength Trunk Manual Muscle Testing Testing Position Supine Flexion 2+ Poor+ Extension 2+ Poor+ Core Stabilization poor ability to activate TrA Hip Strength Hip Manual Muscle Testing Right Flexion (L2) 4- Good- Extension (S1) 3+ Fair+ Abduction 3+ Fair+ Adduction 4- Good- External Rotation 4- Good- Internal Rotation 4- Good- Left Flexion (L2) 4 Good Extension (S1) 4- Good- Abduction 4- Good- Adduction 4 Good External Rotation 4- Good- Internal Rotation 4- Good- PT-OP-T Assessment and Plan Start: 03/31/21 07:38 Freq: Status: Active Protocol: Document 04/07/21 16:24 SAK (Rec: 04/07/21 16:25 SAK [id number]) Physical Therapy Plan Discharge Physical Therapy Discharge Reasons Patient Request Discharge Comments as above.
== END 2021-04-08 07:51 | disposition home or self-care (01) ==
LOC: PHYS 16:00
PROVIDERS: PCP Family Medicine; Referring Provider Family Medicine; Visit Provider Family Medicine
DX: R20.0 Anesthesia of skin (principal); R20.2 Paresthesia of skin; R22.40 Localized swelling, mass and lump, unspecified lower limb
CPT/HCPCS: 97110; 97162; 97535

== ENCOUNTER 2021-08-08 16:42 | Emergency (ER) | payer MEDICARE, OTHER, SELFPAY ==
[2021-08-08 16:46] VITALS: BP 140/71; PULSE 102; O2SAT 95
[2021-08-08 16:48] VITALS: BP 140/71; PULSE 96; RESP 17; TEMP 36.6; O2SAT 95; BMI 30.2
--- NOTE | 2021-08-08 16:55 | PC.NURSE ---
Pt reports new bruise to right lateral calf and right ankle x 2 days, concerned about blood clot. Recent meniscus surgery on the .
--- NOTE | 2021-08-08 17:14 | DI.US.S_ITS ---
PROCEDURE: US PERIPH VENOUS LOW EXTREM RT INDICATIONS: RULE OUT DEEP VEIN THROMBOSIS TECHNIQUE: Real-time imaging, as well as color and pulse Doppler interrogation, were performed of the lower extremity deep veins from the inguinal ligament to the popliteal fossa. COMPARISON: [facility], MR, MR KNEE RIGHT WITHOUT CONTRAST, 06/16/2021, 9:13. FINDINGS: The common femoral, femoral and popliteal veins are normally compressible, and free of intraluminal thrombus. Color and pulse Doppler demonstrate normal phasic intraluminal flow. There is normal augmentation response to distal compression maneuver. Multiple fluid collections are present in the left lower extremity. There is a complex Narayanan's cyst in the popliteal fossa measuring 2.9 x 1.3 x 0.9 cm. A 5.3 x 3.2 x 1.0 cm complex fluid collection is seen in the medial posterior aspect of the left knee. A 6.6 x 2.0 x 1.3 cm minimally complex fluid collection is seen in the lateral aspect of the knee. There is a 5.5 x 4.7 x 1.6 cm minimally complex fluid collection in the anterior aspect of the knee. IMPRESSION: 1. No DVT in the left lower extremity. 2. There is a Narayanan's cyst and 3 fluid collections around knee. Dictated by: Linda Saravia M.D. on 08/08/2021 at 19:12 Approved by: Linda Saravia M.D. on 08/08/2021 at 19:15
--- NOTE | 2021-08-08 17:21 | ED_ITS ---
HPI - Extremity Problem <Carlos Hinson PA-C - Last Filed: 08/08/21 20:08> General Chief complaint: Extremity Problem,Nontraumatic Stated complaint: [id number] rt knee,wants US, blood clots Time Seen by Provider: 08/08/21 16:57 Source: patient Mode of arrival: Ambulatory History of Present Illness HPI Narrative: Kim presents today with chief complaint bruising around her right calf and ankle and continued pain in her right knee. She reports that she had a meniscus repair surgery done 10 days ago locally. Her daughter noticed increased bruising around her right ankle and recommended that she come in here for evaluation. She called the triage nurse at the orthopedics clinic and they recommended coming in to rule out DVT. She denies any significant calf pain, increased swelling, chest pain, shortness of breath, history of DVT, or any other acute concerns or complaints at this time. Related Data Previous Rx's Medication Instructions Recorded sumatriptan succinate 100 mg tablet See Rx Instructions PO .COMPLEX 10/16/20 #10 tab trazodone 100 mg tablet See Rx Instructions .ROUTE 01/15/21 .COMPLEX #90 tablet duloxetine 60 mg capsule,delayed 60 mg PO DAILY #90 cap 02/20/21 release lorazepam 0.5 mg tablet (Ativan) 0.25 mg PO BID PRN #20 tab 02/20/21 Allergies Allergy/AdvReac Type Severity Reaction Status Date / Time aspirin [ASPIRIN] AdvReac Intermediate stomach Verified 11/12/20 15:36 upset ibuprofen [IBUPROFEN] AdvReac Intermediate stomach Verified 11/12/20 15:36 upset codeine [CODEINE] AdvReac Mild doesn't Verified 11/12/20 15:[address] it makes her feel Review of Systems <Carlos Hinson PA-C - Last Filed: 08/08/21 20:08> Review of Systems Narrative: As per HPI Patient History <Carlos Hinson PA-C - Last Filed: 08/08/21 20:08> Medical History (Updated 08/08/21 @ 19:32 by Carlos Hinson PA-C) Anemia (2002) Anxiety Chronic back pain (~2001) Depression Fibroids (2002) Hayfever Hemorrhoids History of live Insomnia Intussusception Laceration of scalp Migraines (~2014) Osteoarthritis Scoliosis Shoulder pain Tinnitus Surgical History Anesthesia History of dilation and curettage (2002) History of laparoscopy Hx of cholecystectomy S/P cholecystectomy S/P small bowel resection Family History Mother Heart disease CVA (cerebral vascular accident) COPD (chronic obstructive pulmonary disease) Brother Liver failure Brother Drowned Grandmother No problems noted. Grandfather No problems noted. Social History marital status: number of children: 5 household members: spouse lives independently: Yes caregiver/support person: Yes (Daughter, Antonia Oscar) education level: other (GED) occupational status: other (retired) Smoking Status: Former smoker alcohol intake: current (rare) substance use type: does not use Smoking Status: Former smoker alcohol intake frequency: other Substance Use Type: does not use Exam <Carlos Hinson PA-C - Last Filed: 08/08/21 20:08> Narrative Exam Narrative: Exam Narrative: Const General: cooperative, healthy appearing, comfortable, no acute distress, well developed and well groomed Nutritional Appearance: average body habitus Orientation: alert and oriented x3 HENMT Head: normal to inspection and atraumatic Ears: hearing grossly normal bilaterally Nose: external nose normal and nares normal Face and sinus: normal facial exam Neck Neck: normal visual inspection and supple Resp Effort & Inspection: normal respiratory effort, able to speak in complete sent ences, no audible wheezes, not labored, no nasal flaring and no respiratory distress Extremities Lower extremities exposed. Postsurgical sites noted to anterior right knee. No significant surrounding erythema or warmth. Minimal bruising to the lateral aspect of right knee with tenderness to the touch. Bruising noted to right ankle. No calf tenderness. Negative Homans sign. No significant pedal edema. Neuro General: alert, oriented x3, tone normal and moves all extremities Cognition: normal cognition Speech: speech normal Psych Appearance: grossly normal and well kempt Mental Status: mental status grossly normal Speech and Movement: speech and movement normal Mood: congruent mood Affect: normal affect Initial Vital Signs Initial Vital Signs: Vital Signs Pulse Rate 102 H 08/08/21 16:46 Blood Pressure 140/71 08/08/21 16:46 Pulse Oximetry 95 08/08/21 16:46 <Arianna Mir DO - Last Filed: 08/08/21 22:32> Initial Vital Signs Initial Vital Signs: Vital Signs Pulse Rate 102 H 08/08/21 16:46 Blood Pressure 140/71 08/08/21 16:46 Pulse Oximetry 95 08/08/21 16:46 Course <Carlos Hinson PA-C - Last Filed: 08/08/21 20:08> Orders Ordered: ED Orders 08/08/21 17:14 US periph venous low extrem rt Stat Vital Signs Vital signs: Vital Signs - 8 hr 08/08/21 16:46 08/08/21 16:48 08/08/21 19:44 Temperature 98 F Pulse Rate 102 H 96 H 75 Respiratory Rate 17 18 Blood Pressure 140/71 140/71 126/68 Pulse Oximetry 95 95 97 <Arianna Mir DO - Last Filed: 08/08/21 22:32> Orders Ordered: ED Orders 08/08/21 17:14 US periph venous low extrem rt Stat Vital Signs Vital signs: Vital Signs - 8 hr 08/08/21 16:46 08/08/21 16:48 08/08/21 19:44 Temperature 98 F Pulse Rate 102 H 96 H 75 Respiratory Rate 17 18 Blood Pressure 140/71 140/71 126/68 Pulse Oximetry 95 95 97 MDM - Extremity (Nontraumatic) <ADOLFO Aplpe Last Filed: 08/08/21 20:08> MDM Narrative Medical decision making narrative: No significant signs of infection noted on physical examination. Ultrasound does not show any evidence of DVT. I suspect that this is normal postoperative pain and bruising that she is experiencing. Return precautions were discussed with the patient extensively. She was encouraged to give her surgeon on-call on Tuesday to schedule a follow-up appointment. Patient verbalizes understanding and agrees to plan and has no further concerns at this time. Thank you A [id number] system was used with the dictation of this note. Please disregard any spelling or grammatical errors. Discharge Plan Departure Patient Disposition: Home Clinical Impression: Acute postoperative pain of right knee Activity Restrictions/Additional Instructions: It was very nice to meet he this evening. No obvious signs of infection or DVT were noted on examination. I suspect that the pain and bruising that you are experiencing is a normal results from the surgery that you just had. Please give your surgeon a call and schedule a follow-up appointment for re-evaluation. Acute experience worsening pain, chest pain, shortness of breath, fever, worsening swelling, redness or have any additional concerns or complaints please return for re-evaluation. Thank you Carlos Hinson PA-C Prescriptions: No Action duloxetine 60 mg capsule,delayed release(DR/EC) 60 mg PO DAILY Qty: 90 RF: 2 lorazepam [Ativan] 0.5 mg tablet 0.25 mg PO BID PRN (Reason: anxiety) Qty: 20 RF: 0 sumatriptan succinate 100 mg tablet See Rx Instructions PO .COMPLEX Qty: 10 RF: 2 trazodone 100 mg tablet See Rx Instructions .ROUTE .COMPLEX Qty: 90 RF: 2 Referrals: Rosa Israel DO [Primary Care Provider] - <Arianna Mir DO - Last Filed: 08/08/21 22:32> Cosign ED Attending Giovannaature Attestation: I was immediately available in the department for consultation. Documentation has been reviewed. I agree with assessment and plan.
[2021-08-08 19:44] VITALS: BP 126/68; PULSE 75; RESP 18; O2SAT 97
== END 2021-08-08 19:45 | disposition home or self-care (01) ==
PROVIDERS: Emergency Provider Physician Assistant; PCP Family Medicine
DX: G89.18 Other acute postprocedural pain (principal); M25.561 Pain in right knee
CPT/HCPCS: 93971; 99283

== ENCOUNTER → 2022-04-29 | Outpatient (CLI) | payer MEDICARE, OTHER, SELFPAY ==
[2022-04-29 15:43] LABS: Add Manual Diff / Slide Review NO; Basophils Absolute Auto 0 /uL (0-100); Basophils Percent Auto 0.7 % (0-2); Eosinophils Absolute Auto 100 /uL (0-450); Eosinophils Percent Auto 1.6 % (2-4); Hematocrit 41.1 % (36-46); Hemoglobin 13.9 g/dL (12.0-16.0); Lymphocytes Absolute Auto 1400 /uL (1100-4500); Lymphocytes Percent Auto 21.8 % (25-40); Mean Corpuscular HGB Conc 33.8 % (30-36); Mean Corpuscular Hemoglobin 31.2 PG (26-34); Mean Corpuscular Volume 92.4 fL (80-100); Monocytes Absolute Auto 400 /uL (0-900); Monocytes Percent Auto 7.1 % (3-14); Neutrophils Absolute Auto 4300 /uL (1500-7000); Neutrophils Percent Auto 68.8 % (50-75); Platelet Count 233 X10^3/uL (150-400); Red Blood Cell Count 4.45 X10^6/uL (4.0-5.2); White Blood Cell Count 6.3 X10^3/uL (4.5-11.0)
[2022-04-29 16:00] LABS: Alanine Aminotransferase 14 IU/L (<35); Albumin 3.9 g/dL (3.5-5.0); Albumin Globulin Ratio 1.4 (1.0-2.8); Alkaline Phosphatase 68 U/L (38-126); Aspartate Aminotransferase 24 IU/L (14-36); BUN Creatinine Ratio 23.6 (6-22); Bilirubin Total 0.4 mg/dL (0.2-1.3); Blood Urea Nitrogen 17 mg/dL (7-17); Calcium 9.1 mg/dL (8.4-10.2); Carbon Dioxide 28 mmol/L (22-32); Chloride 108 mmol/L (98-107); Estimated Glomerular Filt Rate > 60 mL/min (>60); Globulin 2.7 g/dL (1.7-4.1); Glucose 85 mg/dL (80-110); HEMOLYSIS < 15 (0-50); Potassium 4.4 mmol/L (3.4-5.1); Sodium 138 mmol/L (137-145); Total Protein 6.6 g/dL (6.3-8.2)
[2022-04-29 16:17] LABS: Vitamin D 25 Hydroxy (D3) 58.7 ng/mL (30.0-100.0)
== END ==
PROVIDERS: PCP Family Medicine; Referring Provider Family Medicine; Visit Provider Family Medicine
DX: M81.0 Age-related osteoporosis without current pathological fracture (principal); F32.9 Major depressive disorder, single episode, unspecified
CPT/HCPCS: 36415; 80053; 82306; 85025

== ENCOUNTER → 2022-07-15 10:36 | Outpatient (CLI) | payer MEDICARE, OTHER, SELFPAY ==
--- NOTE | 2022-07-15 10:38 | DI.MG.S_ITS ---
BILATERAL DIGITAL SCREENING MAMMOGRAM 3D/2D WITH CAD: 07/15/2022 CLINICAL: Routine screening. Comparison is made to exams dated: 08/20/2013 mammogram - [facility] and 01/29/2019 mammogram - [facility]. There are scattered areas of fibroglandular density in both breasts (category b / 25%-50% glandular tissue). Current study was also evaluated with a Computer Aided Detection (CAD) system. No significant masses, calcifications, or other findings are seen in either breast. There has been no significant interval change. IMPRESSION: NEGATIVE There is no mammographic evidence of malignancy. A 1 year screening mammogram is recommended. Based on the Tyrer Cuzick model (a risk assessment model) the patient's lifetime risk is 3.3% and her 10 year risk is 1.9%. According to the ACR, ACS, and NCCN guidelines, an annual breast MRI exam along with mammogram is recommended if the patient's lifetime risk is 20% or greater. This exam was interpreted at Station ID: [id number]. NOTE: For mammograms, a report in lay terms will be sent to the patient. Approximately 15% of breast malignancies will not be visualized mammographically. In the management of a palpable breast mass, a negative mammogram must not discourage biopsy of a clinically suspicious lesion. Electronically Signed By: Carmelo sanchez/ana:07/15/2022 12:36:53 letter sent: Normal Exam ACR BI-RADS Category 1: Negative 3341F
== END ==
PROVIDERS: PCP Family Medicine; Referring Provider Family Medicine; Visit Provider Family Medicine
DX: Z12.31 Encounter for screening mammogram for malignant neoplasm of breast; M81.0 Age-related osteoporosis without current pathological fracture; Z78.0 Asymptomatic menopausal state
CPT/HCPCS: 77063; 77067; 77080

== ENCOUNTER → 2023-09-15 09:25 | Outpatient (CLI) | payer MEDICARE, OTHER, SELFPAY ==
[2023-09-15 10:54] LABS: Add Manual Diff / Slide Review NO; Basophils Absolute Auto 100 /uL (0-100); Eosinophils Absolute Auto 300 /uL (0-450); Eosinophils Percent Auto 5.3 % (2-4); Hematocrit 34.7 % (36-46); Hemoglobin 11.8 g/dL (12.0-16.0); Lymphocytes Absolute Auto 1500 /uL (1100-4500); Lymphocytes Percent Auto 27.4 % (25-40); Mean Corpuscular Hemoglobin 30.6 PG (26-34); Monocytes Absolute Auto 400 /uL (0-900); Monocytes Percent Auto 8.1 % (3-14); Neutrophils Absolute Auto 3200 /uL (1500-7000); Neutrophils Percent Auto 58.2 % (50-75); Platelet Count 202 X10^3/uL (150-400); Red Blood Cell Count 3.86 X10^6/uL (4.0-5.2); Red Cell Distribution Width 13.6 % (11.6-14.8); White Blood Cell Count 5.5 X10^3/uL (4.5-11.0)
[2023-09-15 11:10] LABS: HEMOLYSIS < 15 (0-50); Iron 96 ug/dL (37-170)
[2023-09-15 11:12] LABS: Alanine Aminotransferase 17 IU/L (<35); Albumin 3.5 g/dL (3.5-5.0); Albumin Globulin Ratio 1.3 (1.0-2.8); Alkaline Phosphatase 53 U/L (38-126); Aspartate Aminotransferase 22 IU/L (14-36); BUN Creatinine Ratio 39.3 (6-22); Bilirubin Total 0.4 mg/dL (0.2-1.3); Blood Urea Nitrogen 24 mg/dL (7-17); Calcium 9.4 mg/dL (8.4-10.2); Carbon Dioxide 27 mmol/L (22-32); Chloride 107 mmol/L (98-107); Estimated Glomerular Filt Rate > 60 mL/min (>60); Globulin 2.8 g/dL (1.7-4.1); Glucose 100 mg/dL (80-110); HEMOLYSIS < 15 (0-50); Sodium 139 mmol/L (137-145); Total Protein 6.3 g/dL (6.3-8.2)
[2023-09-15 11:24] LABS: Percent Iron Saturation 33 % (15-50); Total Iron Binding Capacity 292 ug/dL (265-497); Transferrin 235 mg/dL (206-381)
[2023-09-15 11:44] LABS: Thyroid Stimulating Hormone 3.67 uIU/mL (0.47-4.68)
[2023-09-15 12:18] LABS: Folate 6.7 ng/mL (2.76-20.0); Vitamin B12 345 pg/mL (239-931)
[2023-09-16 09:20] LABS: Thyroid Peroxidase Antibodies 19 IU/mL (0-34)
== END ==
LOC: LAB 09:45 → RESP 10:44
PROVIDERS: PCP Student in an Organized Health Care Education/Training Program; Referring Provider Psychiatry & Neurology Psychiatry; Visit Provider Psychiatry & Neurology Psychiatry
DX: F33.1 Major depressive disorder, recurrent, moderate (principal); F41.1 Generalized anxiety disorder; F51.02 Adjustment insomnia; F43.12 Post-traumatic stress disorder, chronic; F41.0 Panic disorder [episodic paroxysmal anxiety]
CPT/HCPCS: 36415; 80053; 80307; 82607; 82746; 83540; 83550; 84443; 85025; 86376

== ENCOUNTER → 2023-09-16 08:19 | Outpatient (CLI) | payer MEDICARE, OTHER, SELFPAY ==
[2023-09-16 10:00] LABS: Add Manual Diff / Slide Review NO; Basophils Absolute Auto 0 /uL (0-100); Basophils Percent Auto 0.6 % (0-2); Eosinophils Absolute Auto 300 /uL (0-450); Eosinophils Percent Auto 6.4 % (2-4); Hematocrit 39.1 % (36-46); Hemoglobin 13.2 g/dL (12.0-16.0); Lymphocytes Absolute Auto 1600 /uL (1100-4500); Lymphocytes Percent Auto 30.4 % (25-40); Mean Corpuscular HGB Conc 33.9 % (30-36); Mean Corpuscular Hemoglobin 30.5 PG (26-34); Monocytes Absolute Auto 400 /uL (0-900); Monocytes Percent Auto 6.5 % (3-14); Neutrophils Absolute Auto 3000 /uL (1500-7000); Neutrophils Percent Auto 56.1 % (50-75); Platelet Count 239 X10^3/uL (150-400); Red Blood Cell Count 4.34 X10^6/uL (4.0-5.2); Red Cell Distribution Width 13.5 % (11.6-14.8); White Blood Cell Count 5.4 X10^3/uL (4.5-11.0)
[2023-09-16 10:26] LABS: Alanine Aminotransferase 18 IU/L (<35); Albumin 3.8 g/dL (3.5-5.0); Albumin Globulin Ratio 1.3 (1.0-2.8); Alkaline Phosphatase 61 U/L (38-126); Aspartate Aminotransferase 25 IU/L (14-36); BUN Creatinine Ratio 27.1 (6-22); Bilirubin Total 0.5 mg/dL (0.2-1.3); Blood Urea Nitrogen 19 mg/dL (7-17); Calcium 9.8 mg/dL (8.4-10.2); Carbon Dioxide 24 mmol/L (22-32); Chloride 108 mmol/L (98-107); Estimated Glomerular Filt Rate > 60 mL/min (>60); Globulin 2.9 g/dL (1.7-4.1); Glucose 114 mg/dL (80-110); HEMOLYSIS < 15 (0-50); Potassium 3.9 mmol/L (3.4-5.1); Sodium 140 mmol/L (137-145); Total Protein 6.7 g/dL (6.3-8.2)
[2023-09-21 12:51] LABS: Chromogranin A, Serum 133.1 ng/mL (0.0-101.8)
== END ==
PROVIDERS: PCP Student in an Organized Health Care Education/Training Program; Referring Provider Physician Assistant; Visit Provider Physician Assistant
DX: C7A.8 Other malignant neuroendocrine tumors (principal)
CPT/HCPCS: 36415; 80053; 85025; 86316

== ENCOUNTER → 2023-09-30 07:41 | Outpatient (CLI) | payer MEDICARE, OTHER, SELFPAY ==
--- NOTE | 2023-09-30 07:42 | DI.US.S_ITS ---
PROCEDURE: US PELVIC COMPLETE INDICATIONS: POSTMENOPAUSAL BLEEDING TECHNIQUE: Real-time scanning was performed of the pelvic organs, with image documentation. Additional endovaginal scanning was necessary due to incomplete visualization of the adnexal and endometrial structures by transabdominal scanning. COMPARISON: None. FINDINGS: Uterus: Uterus is anteverted and normal in size at 7.4 x 5.2 x 3.2 cm. The myometrium is heterogeneous. The endometrium measures 18.1 mm combined thickness. Increased vascularity in the endometrium with cystic changes. Fundal subserosal versus intramural fibroid measuring 1.4 cm. Ovaries: The right ovary measures 2.2 x 1.5 x 1.1 cm, with a calculated ovarian volume of 0.8 cc. The left ovary measures 2.5 x 1.4 x 1.6 cm, with a calculated ovarian volume of 2.7 cc. The ovaries have a normal sonographic appearance. Less than 12 follicles can be seen in each ovary. No adnexal masses are seen. Other: No pathologic free abdominal or pelvic fluid. IMPRESSION: Thickened endometrium measuring 18 mm with increased vascularity and cystic changes. Recommend further evaluation with endometrial sampling or short-term follow-up ultrasound. Fundal subserosal versus intramural fibroid measuring 1.4 cm. The ovaries are normal in appearance. We strive to produce accurate, complete, and clear reports of imaging services. To assist us in improving patient care, this report was composed using standard report templates and voice recognition software. Therefore, it may contain abnormal punctuation, insertions and/or omissions. Occasional wrong-word or sound-alike substitutions may occur. Though we review the report and make efforts to correct it, we do recommend that the report be read carefully in proper context to recognize any text inaccuracies. Dictated by: J Luis Boateng M.D. on 09/30/2023 at 11:58 Approved by: J Luis Boateng M.D. on 09/30/2023 at 12:01
== END ==
PROVIDERS: PCP Student in an Organized Health Care Education/Training Program; Referring Provider Obstetrics & Gynecology; Visit Provider Obstetrics & Gynecology
DX: R93.89 Abnormal findings on diagnostic imaging of other specified body structures (principal); N95.0 Postmenopausal bleeding
CPT/HCPCS: 76830; 76856

== ENCOUNTER 2023-10-28 06:28 | Day surgery (SDC) | payer MEDICARE, OTHER, SELFPAY ==
[2023-10-20 15:13] VITALS: BMI 25.7
[2023-10-28] VITALS (11 sets, daily range): BP systolic 114–145; BP diastolic 67–87; PULSE 84–98; RESP 12–18; TEMP 36.6–36.9; O2SAT 95–97; BMI 25.7
--- NOTE | 2023-10-28 | PATH_ITS ---
[facility] Accession Number: [id number] No. of containers..03 Tissue . 01 Material submitted: . PART A: endometrium - ENDOMETRIAL POLYP PART B: endocervix - ENDOCERVICAL CURETTINGS PART C: endometrium - ENDOMETRIAL CURETTINGS . 01 Diagnosis: A. Endometrium, Polyp, Polypectomy: Small crowded foci of cytologically altered glands; See comment. Background of weakly and non-proliferative endometrium in association with endometrial polyp(s), eosinophilic/ciliated metaplasia, and focal shedding/breakdown. . B. Endocervix, Curettage: Superficial strips of atrophic squamous epithelium and benign endocervical epithelium. No evidence of dysplasia or malignancy. . C. Endometrium, Curettage: Blood and superficial strips of inactive endometrial glandular epithelium with features of atrophy and focally associated with polyp(s). Negative for significant cytologic atypia and malignancy. . COMMENT: Part A. 2 small foci (1 to 2.0 mm), mostly on the surface of polyp fragments, in blocks A2 and A3, demonstrate mucinous metaplasia with some degree of architectural complexity consisting of slight pseudopapillary architecture. There is no significant cytologic atypia, no true vascular papillae, and no cribriform or more complex intraglandular proliferation. The background consists predominantly of small and large polyps within 3 blocks of tissue. 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 . REFERENCES: Walker et al. Mucinous endometrial epithelial proliferations: a morphologic spectrum of changes with diverse clinical significance Mod Pathol. 1999 Sep;12(12):1137-42. PMID: 03294990 . Kaden Matos al. Clinical outcome in diagnostically ambiguous foci of 'gland crowding' in the endometrium Modern Pathology (2009) 23, 7050-2872 doi:10.1038/modpathol.2010.140; published online 08 May 2010 MRV 11/07/2023 1227 Local . 01 Electronically signed: Darlene Vail MD, Pathologist NPI- [id number] . 01 Gross description: . A. Received in formalin, labeled with the patient's name, , and endometrial polyps, and consists of multiple martines soft tissue fragments aggregating to 3.6 x 3.4 x 0.3 cm. Filtered and submitted entirely in cassettes A1-A3. B. Received in formalin, labeled with the patient's name, , and endocervical curettings, and consists of a small amount of martines to brown soft tissue fragments admixed with hemorrhagic material aggregating to 0.9 x 0.5 x 0.1 cm. Filtered and submitted entirely in cassette B1. C. Received in formalin, labeled with the patient's name, , and endometrium curettings, and consists of multiple martines soft tissue fragments admixed with mucohemorrhagic material aggregating to 1.3 x 1.2 x 0.1 cm. Filtered and submitted entirely in cassette C1. ([id number]) /R 10/29/2023 [facility]3 Local . 01 Microscopic: . Deeper H/E levels examined on blocks A2 and A3. . 01 Pathologist provided ICD-10: N95.0, N84.0 . 01 CPT . 729635, 076321, 759427 Specimen Comment: A courtesy copy of this report has been sent to [phone] Performed at: 01 [facility] [address] [place] [address], [place], [place] [id number] MD Toño Ho MD Phone: [phone]
[2023-10-28] MEDS: LACTATED RINGERS 1,000 ML 84 ML IV (07:12)
--- NOTE | 2023-10-28 07:44 | PM.PREOP ---
Pre-operative Note COVID-19 COVID-19 status: Not tested Interval Note History & Physical reviewed/Exam performed by Physician: Yes Changes to H&P: No
--- NOTE | 2023-10-28 08:25 | SUR.OPER ---
Lithotomy on padded OR bed, head on pillow, arms secured on padded arm boards at <90 degrees abduction. Legs secured in padded yellow fins stirrups. Patients glasses placed in black glass case and thin into patients belongings bag in pre-op.
[2023-10-28] MEDS: ACETAMINOPHEN 325 MG TABLET 650 MG PO (08:46)
[2023-10-28] MEDS: hydrOXYzine pamoate 25 MG CAPSULE PO (08:46)
[2023-10-28] MEDS: OXYCODONE IR 5 MG TABLET PO ×2 (08:46→09:23)
--- NOTE | 2023-10-28 08:46 | PM.GYNOP.1 ---
Operative Date/Time/Diagnoses Date of procedure: 10/28/23 Time of procedure: 08:10 Pre-op diagnosis: Postmenopausal bleeding Endometrial polyp Post-op diagnosis: same Procedure & Clinicians Procedure: Procedures Operation Date: 10/28/23 07:45 Actual Procedure Side Surgeon p Hysteroscopy with polypectomy, D&C of uterus Beau Rivas MD Indications: Kim is a 68-year-old , LMP in her early 50s, who has experienced 3 episodes of vaginal bleeding since July 2023. 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 She is had 2 more episodes of bleeding following her surgery each of which was slightly heavier than the last. A pelvic ultrasound performed 09/30/2023 shows: FINDINGS: Uterus: Uterus is anteverted and normal in size at 7.4 x 5.2 x 3.2 cm. The myometrium is heterogeneous. The endometrium measures 18.1 mm combined thickness. Increased vascularity in the endometrium with cystic changes. Fundal subserosal versus intramural fibroid measuring 1.4 cm. Ovaries: The right ovary measures 2.2 x 1.5 x 1.1 cm, with a calculated ovarian volume of 0.8 cc. The left ovary measures 2.5 x 1.4 x 1.6 cm, with a calculated ovarian volume of 2.7 cc. The ovaries have a normal sonographic appearance. Less than 12 follicles can be seen in each ovary. No adnexal masses are seen. Other: No pathologic free abdominal or pelvic fluid. IMPRESSION: Thickened endometrium measuring 18 mm with increased vascularity and cystic changes. Recommend further evaluation with endometrial sampling or short-term follow-up ultrasound. Fundal subserosal versus intramural fibroid measuring 1.4 cm. The ovaries are normal in appearance. We had an extended discussion regarding potential causes of the patient's postmenopausal bleeding as well as potential causes for the thickening of the endometrial stripe. We discussed both benign and malignant causes and steps in further evaluation/treatment for both. Endometrial biopsy performed 10/05/2023 did not show any atypia, hyperplasia, or neoplasia but did show changes consistent with endometrial polyps. Because of the significant thickening of the endometrial stripe on ultrasound and the presence of polypoid changes, the patient has no undergoing hysteroscopic evaluation of the endometrial cavity, polyp removal, with dilation and curettage also planned. She presents today for her scheduled surgery. Surgeon: Beau Rivas Anesthesia Type: General Operative Notes Findings: There is a large polyp arising from the left posterolateral surface of the endometrial cavity and a smaller polyp arising from the fundal endometrium. No other abnormalities were noted in either the endometrial or endocervical spaces. Closure Type: not applicable Specimen(s): endometrial curettings, endometrial polyp and other (Endocervical curettings) Estimated blood loss (mL): 10 Blood products transfused: none Procedure in detail: With the patient under general anesthesia in the modified dorsal lithotomy position, the perineum, vagina, and lower abdomen were prepped and draped in the usual fashion for hysteroscopy with endometrial ablation. A pre-surgical safety time-out was then taken in accordance with [facility] OR protocols. A bivalve speculum was inserted in the vagina and the cervix visualized. The anterior lip of the cervix was grasped with a single-tooth tenaculum and the endocervical canal was then dilated to 6 mm diameter. The Myosure hysteroscope was placed through the endocervical canal into the endometrial cavity and the cavity was visualized with findings as noted above. Once the base of the polyp was identified, a polyp forceps was introduced into the endometrial cavity and the bulk of the polyp removed with the polyp forceps. The MyoSure Lite was then introduced through the operating channel of MyoSure scope and used to shave all remaining portions of the polyp base and the smaller polyp at the fundus. The MyoSure shavings and the polyp removed with polyp forceps were submitted as an aggregate specimen labeled endometrial polyp. Both tubal ostia were visualized. The hysteroscope was then withdrawn and a fractional dilation and curettage was accomplished with separate pathologic specimen submitted for the endometrial and endocervical curettings. The tenaculum was then removed from the anterior lip of the cervix and no bleeding was encountered. The speculum was then removed from the vagina and the patient awakened from anesthesia. She was then transferred to the PACU for a period of observation and recovery having tolerated the procedure well. Complications: none Post-operative Condition: stable Disposition: PACU Plan for aftercare: Routine postoperative care with the patient notified of path results as soon as those are available.
--- NOTE | 2023-10-28 09:32 | SUR.PHASEII ---
RN let anesthesia pt's heart rate was in the 90's pt arrived to hospital heart rate in the 80s. Camron IBARRA nurse anesthestitist states that is fine. Pt's pain coming in waves of cramping and when the wave comes her heart rate increases.
== END 2023-10-28 09:50 | disposition home or self-care (01) ==
PROVIDERS: PCP Student in an Organized Health Care Education/Training Program; Referring Provider Obstetrics & Gynecology; Visit Provider Obstetrics & Gynecology
PROC: 0UDB8ZZ Extraction of Endometrium, Via Natural or Artificial Opening Endoscopic (ICD-10-PCS; CPT 58558; principal; 2023-10-28 07:45)
DX: N95.0 Postmenopausal bleeding (principal); D25.2 Subserosal leiomyoma of uterus; N84.0 Polyp of corpus uteri
CPT/HCPCS: 58558; J1100; J2405; J2704; J3010

== ENCOUNTER → 2024-05-15 14:22 | Outpatient (CLI) | payer MEDICARE, OTHER, SELFPAY ==
[2024-05-15 14:56] LABS: Add Manual Diff / Slide Review NO; Basophils Absolute Auto 0 /uL (0-100); Basophils Percent Auto 0.8 % (0-2); Eosinophils Absolute Auto 200 /uL (0-450); Hematocrit 29.4 % (36-46); Hemoglobin 9.5 g/dL (12.0-16.0); Lymphocytes Absolute Auto 1300 /uL (1100-4500); Lymphocytes Percent Auto 23.4 % (25-40); Mean Corpuscular HGB Conc 32.4 % (30-36); Mean Corpuscular Hemoglobin 24.2 PG (26-34); Mean Corpuscular Volume 74.6 fL (80-100); Monocytes Absolute Auto 600 /uL (0-900); Monocytes Percent Auto 10.6 % (3-14); Neutrophils Absolute Auto 3600 /uL (1500-7000); Neutrophils Percent Auto 62.2 % (50-75); Platelet Count 305 X10^3/uL (150-400); Red Blood Cell Count 3.94 X10^6/uL (4.0-5.2); Red Cell Distribution Width 16.2 % (11.6-14.8); White Blood Cell Count 5.7 X10^3/uL (4.5-11.0)
[2024-05-15 15:30] LABS: HEMOLYSIS < 15 (0-50)
[2024-05-15 15:31] LABS: Iron 27 ug/dL (37-170)
[2024-05-15 16:06] LABS: Ferritin 6 ng/mL (11-264)
[2024-05-15 18:06] LABS: Percent Iron Saturation 6 % (15-50); Total Iron Binding Capacity 434 ug/dL (265-497); Transferrin 339 mg/dL (206-381)
== END ==
PROVIDERS: PCP Student in an Organized Health Care Education/Training Program; Referring Provider Student in an Organized Health Care Education/Training Program; Visit Provider Student in an Organized Health Care Education/Training Program
DX: D64.9 Anemia, unspecified (principal)
CPT/HCPCS: 36415; 82728; 83540; 83550; 85025

== ENCOUNTER → 2024-06-22 09:47 | Outpatient (CLI) | payer MEDICARE, OTHER, SELFPAY ==
--- NOTE | 2024-06-22 10:00 | DI.RAD.S_ITS ---
PROCEDURE: XR DEXA AXIAL SKELETON INDICATIONS: Bone Density Screening COMPARISON: [facility], [place]ESH, XR DEXA AXIAL SKELETON, 07/15/2022, 11:05. FINDINGS: Lumbar Spine: Bone mineral density 0.79 g/cm2, T score -2.0, previously -2.5. Left Femoral Neck: Bone mineral density 0.704 g/cm2, T score -2.0, previously -2.1. Right Femoral Neck: Bone mineral density 0.54 g/cm2, T score -2.4, previously-2.5. Fracture Risk Calculation (when applicable): 10-year fracture risk of a major osteoporotic fracture 26% and of a hip fracture 11%. Please note that these estimates are provided for patients without a prior fracture history. (T score greater or equal to -1.0 to: NORMAL) (T score from -1.1 to -2.4: OSTEOPENIA) (T score less than or equal to -2.5: OSTEOPOROSIS) IMPRESSION: 1. Osteopenia of the lumbar spine. 2. Osteopenia of the femoral necks, although the right femoral neck is borderline osteoporotic. Follow-up guidelines as follows: Osteoporosis: Consider a repeat DEXA and Vertebral Fracture Assessment (VFA) exam in 2 years or sooner if medically necessary, to reassess this patient's status. Osteopenia: Consider a repeat DEXA in 2-3 years to reassess this patient's status, or if there is a new clinical indication. Normal: Consider a repeat DEXA in 5 years or sooner, or if there is a new clinical indication. All treatment decisions require clinical judgment and consideration of individual patient factors, including patient preferences, comorbidities, previous drug use, risk factors not captured in the FRAX model (e.g., frailty, falls, vitamin D deficiency, increased bone turnover, interval significant decline in bone density ) and possible under- or over-estimation of fracture risk by FRAX. In addition, the NOF Guide recommends that FDA-approved medical therapies be considered in postmenopausal women and men age >= 50 years with a: * Hip or vertebral (clinical or morphometric) fracture * T-score of <=-2.5 at the spine or hip * Ten-year fracture probability by FRAX of >= 3% for hip fracture or >=20% for major osteoporotic fracture. People with diagnosed cases of osteoporosis or at high risk for fracture should have regular bone mineral density tests. For patients eligible for Medicare, routine testing is allowed once every 2 years. The testing frequency can be increased to one year for patients who have rapidly progressing disease, those who are receiving or discontinuing medical therapy to restore bone mass, or have additional risk factors. Dictated by: Evin Rose M.D. on 06/25/2024 at 6:34 Approved by: Evin Rose M.D. on 06/25/2024 at 6:43
== END ==
LOC: RAD 09:48
PROVIDERS: PCP Student in an Organized Health Care Education/Training Program; Referring Provider Student in an Organized Health Care Education/Training Program; Visit Provider Student in an Organized Health Care Education/Training Program
DX: M81.0 Age-related osteoporosis without current pathological fracture (principal)
CPT/HCPCS: 77080

== ENCOUNTER → 2024-08-14 10:21 | Outpatient (CLI) | payer MEDICARE, OTHER, SELFPAY ==
[2024-08-14 13:00] LABS: Add Manual Diff / Slide Review NO; Basophils Absolute Auto 0 /uL (0-100); Basophils Percent Auto 0.6 % (0-2); Eosinophils Absolute Auto 100 /uL (0-450); Eosinophils Percent Auto 2.8 % (2-4); Hemoglobin 13.5 g/dL (12.0-16.0); Lymphocytes Absolute Auto 1300 /uL (1100-4500); Lymphocytes Percent Auto 27.6 % (25-40); Mean Corpuscular HGB Conc 32.9 % (30-36); Mean Corpuscular Hemoglobin 27.2 PG (26-34); Mean Corpuscular Volume 82.7 fL (80-100); Monocytes Absolute Auto 400 /uL (0-900); Monocytes Percent Auto 8.4 % (3-14); Neutrophils Absolute Auto 3000 /uL (1500-7000); Neutrophils Percent Auto 60.6 % (50-75); Platelet Count 226 X10^3/uL (150-400); Red Blood Cell Count 4.95 X10^6/uL (4.0-5.2); Red Cell Distribution Width 26.6 % (11.6-14.8); White Blood Cell Count 4.9 X10^3/uL (4.5-11.0)
[2024-08-14 13:11] LABS: Anisocytosis 1+
[2024-08-14 13:17] LABS: Alanine Aminotransferase 16 IU/L (<35); Albumin 4.1 g/dL (3.5-5.0); Albumin Globulin Ratio 1.5 (1.0-2.8); Alkaline Phosphatase 68 U/L (38-126); Aspartate Aminotransferase 28 IU/L (14-36); BUN Creatinine Ratio 21.7 (6-22); Bilirubin Total 0.5 mg/dL (0.2-1.3); Blood Urea Nitrogen 15 mg/dL (7-17); C-Reactive Protein Quant < 0.5 mg/dL (<1.0); Calcium 9.3 mg/dL (8.4-10.2); Carbon Dioxide 23 mmol/L (22-32); Chloride 106 mmol/L (98-107); Estimated Glomerular Filt Rate > 60 mL/min (>60); Globulin 2.7 g/dL (1.7-4.1); Glucose 81 mg/dL (80-110); HEMOLYSIS < 15 (0-50); Sodium 137 mmol/L (137-145); Total Protein 6.8 g/dL (6.3-8.2)
== END ==
LOC: LAB 10:22
PROVIDERS: PCP Student in an Organized Health Care Education/Training Program; Referring Provider Student in an Organized Health Care Education/Training Program; Visit Provider Student in an Organized Health Care Education/Training Program
DX: M25.50 Pain in unspecified joint (principal); Z85.9 Personal history of malignant neoplasm, unspecified; R19.06 Epigastric swelling, mass or lump; F33.1 Major depressive disorder, recurrent, moderate; R49.0 Dysphonia; M15.9 Polyosteoarthritis, unspecified
CPT/HCPCS: 36415; 80053; 85025; 86140

== ENCOUNTER → 2024-08-21 13:27 | Outpatient (CLI) | payer MEDICARE, OTHER, SELFPAY ==
--- NOTE | 2024-08-21 13:29 | DI.CT.S_ITS ---
PROCEDURE: CT CHEST ABD PEL W CON INDICATIONS: New onset abdominal mass / History of cancer TECHNIQUE: After the administration of intravenous contrast, 5 mm thick sections acquired from the lung apices to the symphysis. 5 mm coronal and sagittal reformats were performed, with additional 7 mm MIP reformats through the lungs. For radiation dose reduction, the following was used: automated exposure control, adjustment of mA and/or kV according to patient size. COMPARISON: None. FINDINGS: Image quality: Diagnostic Lungs and pleura: Scattered scarring and atelectasis. No pleural effusions. Micro nodule versus granuloma in the right lateral lung, attention on follow-up . Possible small subpleural nodule in the right upper lobe measuring 5-6 millimeters, . Suspected thick atelectasis at the lingula. Mediastinum, heart, and esophagus: Small amount contrast in the distal esophagus possibly from reflux or slow transit No pathologic lymph nodes by size criteria. A left-sided SVC is also seen in addition to the right. Chest wall and thyroid: Unremarkable Liver: Subcentimeter lesion in the right lobe (), too small to characterize, possibly a cyst Gallbladder and biliary system: Absent, ectatic CBD measures 6-7 millimeters, likely within normal limits for postsurgical state Pancreas: No ductal dilation Spleen: Nonenlarged Adrenals: No discrete nodules Kidneys: Left renal cyst no solid or complicated lesion. No hydronephrosis. Vessels and lymph nodes: The main portal vein appears patent. No abdominal aortic aneurysm. No pathologic lymph nodes by size criteria. Bowel and peritoneum: No pathologic ascites. Right colonic suture lines. Small-bowel obstruction in the central abdomen with clump bowel loops and transition point. A possible tiny partial hernia is seen in the deep rectus fascia containing a loop of bowel on image 2/138. Body wall: Small fat containing inguinal hernias. Postsurgical changes. Fat containing superior midline ventral hernia also present. Pelvis: Bladder is unremarkable. Reproductive organs are unremarkable on limited CT evaluation. Bones: Spinal curvature. No aggressive appearing osseous lesions. IMPRESSION: Small bowel obstruction with transition in the central abdomen. A possible knuckle of bowel is seen within a small ventral hernia involving only the deep rectus fascia. (2/138) Fat containing superior midline ventral hernia also present. Other findings above. Given oncologic history, consider future dedicated oncologic surveillance imaging. Dictated by: Carmelo Loaiza M.D. on 08/21/2024 at 15:14 Approved by: Carmelo Loaiza M.D. on 08/21/2024 at 15:25
== END ==
PROVIDERS: PCP Student in an Organized Health Care Education/Training Program; Referring Provider Student in an Organized Health Care Education/Training Program; Visit Provider Student in an Organized Health Care Education/Training Program
DX: K56.609 Unspecified intestinal obstruction, unspecified as to partial versus complete obstruction (principal); R19.00 Intra-abdominal and pelvic swelling, mass and lump, unspecified site; N28.1 Cyst of kidney, acquired; K40.90 Unilateral inguinal hernia, without obstruction or gangrene, not specified as recurrent; K43.9 Ventral hernia without obstruction or gangrene; Z85.9 Personal history of malignant neoplasm, unspecified; Z90.49 Acquired absence of other specified parts of digestive tract
CPT/HCPCS: 71260; 74177; 93010; Q9967

== ENCOUNTER 2024-08-21 16:39 | Inpatient (IN) | payer MEDICARE, OTHER, SELFPAY ==
[2024-08-21] VITALS (8 sets, daily range): BP systolic 114–140; BP diastolic 62–85; PULSE 87–107; RESP 16–20; TEMP 36.9; O2SAT 93–98; BMI 26.8
--- NOTE | 2024-08-21 17:21 | EKG_ITS ---
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
[2024-08-21 18:03] LABS: Add Manual Diff / Slide Review NO; Basophils Absolute Auto 0 /uL (0-100); Basophils Percent Auto 0.5 % (0-2); Eosinophils Absolute Auto 100 /uL (0-450); Eosinophils Percent Auto 0.9 % (2-4); Hematocrit 44.3 % (36-46); Hemoglobin 14.6 g/dL (12.0-16.0); Lymphocytes Absolute Auto 1300 /uL (1100-4500); Lymphocytes Percent Auto 14.2 % (25-40); Mean Corpuscular Hemoglobin 27.8 PG (26-34); Monocytes Absolute Auto 600 /uL (0-900); Monocytes Percent Auto 6.6 % (3-14); Neutrophils Absolute Auto 7300 /uL (1500-7000); Neutrophils Percent Auto 77.8 % (50-75); Platelet Count 275 X10^3/uL (150-400); Red Blood Cell Count 5.28 X10^6/uL (4.0-5.2); Red Cell Distribution Width 26.2 % (11.6-14.8); White Blood Cell Count 9.4 X10^3/uL (4.5-11.0)
[2024-08-21 18:07] LABS: INR 1.1 (0.9-1.3); Prothrombin Time 12.7 SECONDS (9.4-12.5)
[2024-08-21 18:11] LABS: Alanine Aminotransferase 18 IU/L (<35); Albumin 4.6 g/dL (3.5-5.0); Albumin Globulin Ratio 1.5 (1.0-2.8); Alkaline Phosphatase 77 U/L (38-126); Aspartate Aminotransferase 25 IU/L (14-36); BUN Creatinine Ratio 22.9 (6-22); Bilirubin Total 0.5 mg/dL (0.2-1.3); Blood Urea Nitrogen 16 mg/dL (7-17); Calcium 10.3 mg/dL (8.4-10.2); Carbon Dioxide 23 mmol/L (22-32); Chloride 104 mmol/L (98-107); Estimated Glomerular Filt Rate > 60 mL/min (>60); Glucose 113 mg/dL (80-110); HEMOLYSIS < 15 (0-50); Lipase 104 U/L (23-300); Potassium 4.1 mmol/L (3.4-5.1); Sodium 137 mmol/L (137-145); Total Protein 7.6 g/dL (6.3-8.2)
[2024-08-21 18:15] LABS: Anisocytosis 3+
--- NOTE | 2024-08-21 18:21 | ED_ITS ---
HPI - Abdominal Pain General Chief Complaint: Abdominal Pain Stated Complaint: ct td, obstruction in abd, sent by pcp Time Seen by Provider: 08/21/24 17:19 Source: patient Mode of arrival: Ambulatory History of Present Illness HPI narrative: 69-year-old female with history of carcinoid tumor status post resection (first resection 2018 at [facility], 2nd in 2022 at ) presents for from her PCP office for abdominal pain with nausea and vomiting. Patient saw her PCP on 08/14 for a midepigastric abdominal mass noticable when patient sits up. Due to patient's history of previous intra-abdominal tumors a CT was ordered, and performed today, 08/21, which showed a small bowel obstruction. It was reported that a possible knuckle of bowel was seen in the small ventral hernia involving only the deep rectus fascia. There was also a fat containing superior midline ventral hernia present. Patient was referred to the emergency department for further workup. Patient continues to report ongoing abdominal pain with nausea. She states that she thinks she passed gas 4-5 hours ago, but none since. Related Data Previous Rx's Medication Instructions Recorded sumatriptan succinate 100 mg tablet See Rx Instructions PO .COMPLEX 10/26/21 #10 tabs meloxicam 15 mg tablet 15 mg PO DAILY Pain #90 tabs 10/20/23 venlafaxine 150 mg 150 mg PO DAILY #30 caps 07/11/24 capsule,extended release 24 hr cyclobenzaprine 5 mg tablet 5 mg PO BID PRN muscle spasm #60 08/14/24 tabs ondansetron HCl 4 mg tablet 4 mg PO Q8-12H PRN nausea and 08/21/24 vomiting #20 tabs Allergies Allergy/AdvReac Type Severity Reaction Status Date / Time aspirin [ASPIRIN] AdvReac Intermediate stomach Verified 08/14/24 09:52 upset ibuprofen [IBUPROFEN] AdvReac Intermediate stomach Verified 08/14/24 09:52 upset codeine [CODEINE] AdvReac Mild doesn't Verified 08/14/24 09:[address] it makes her feel Patient History Medical History Intussusception Laceration of scalp History of live Insomnia Fibroids (2002) Hemorrhoids Tinnitus Scoliosis Migraines (~2014) Chronic back pain (~2001) Depression Anxiety Anemia (2002) Hayfever Osteoarthritis Shoulder pain Surgical History History of surgery (08/10/23) Hx of cholecystectomy S/P cholecystectomy S/P small bowel resection Anesthesia History of dilation and curettage (2002) History of laparoscopy Family History Mother Heart disease CVA (cerebral vascular accident) COPD (chronic obstructive pulmonary disease) Brother Liver failure Brother Drowned Grandmother No problems noted. Grandfather No problems noted. Social History marital status: number of children: 5 household members: spouse lives independently: Yes caregiver/support person: Yes (Daughter, Antonia Oscar) education level: other (GED) occupational status: other (retired) Smoking Status: Former smoker alcohol intake: never substance use type: does not use Smoking Status: Former smoker alcohol intake frequency: other Substance Use Type: does not use Exam Initial Vital Signs Initial Vital Signs: Vital Signs Temperature 98.4 F 08/21/24 17:08 Pulse Rate 103 H 08/21/24 17:08 Respiratory Rate 16 08/21/24 17:08 Blood Pressure 129/80 08/21/24 17:08 Pulse Oximetry 96 08/21/24 17:08 Oxygen Delivery Method Room Air 08/21/24 17:08 Const: Awake, alert, no acute distress, nontoxic appearing Cardiac: regular rate, regular rhythm RESP: unlabored, clear bilaterally, no wheezing GI: Soft, moderate distention, generalized tenderness to deep palpation without rebound or guarding, small tennis ball-sized hernia present with increased abdominal pressure (such as crunching) Skin: Warm, Dry, intact, no rashes Neuro: AO x3, CN II-XII grossly intact, moves all extremities Course Orders Ordered: ED Orders 08/21/24 18:20 Urine Microscopic Stat Hydromorphone HCl (Hydromorphone 0.5 Mg Inj) 0.5 mg IV Q2H PRN PRN Reason: Pain, Severe (7-10) Last Admin: 08/21/24 23:22 Dose: 0.5 mg Documented By: Admin: 08/21/24 20:50 Dose: 0.5 mg Documented By: ZELALEM Sodium Chloride (Normal Saline 0.9%) 1,000 mls @ 100 mls/hr IV CONT JESUS Last Infusion: 08/21/24 20:35 Dose: 0 mls/hr Documented By: Admin: 08/21/24 20:20 Dose: 100 mls/hr Documented By: CHRIS Naloxone HCl (Naloxone 0.4 Mg/Ml Vial) 0.2 mg IV Q2MIN PRN PRN Reason: Opiate Reversal Ondansetron HCl (Ondansetron 4 Mg/2 Ml Inj) 4 mg IV NOW PRN PRN Reason: Nausea And Vomiting Last Admin: 08/21/24 20:14 Dose: 4 mg Documented By: CHRIS Ondansetron HCl (Ondansetron 4 Mg Odt) 4 mg PO NOW PRN PRN Reason: Nausea And Vomiting Discontinued Medications Sodium Chloride (Normal Saline 0.9%) 1,000 mls @ 1,000 mls/hr IV BOLUS ONE Stop: 08/21/24 19:12 Last Infusion: 08/21/24 20:01 Dose: Infused Documented By: Admin: 08/21/24 18:23 Dose: 1,000 mls/hr Documented By: RADHA Morphine Sulfate (Morphine 4 Mg/Ml Inj) 4 mg IV NOW ONE Stop: 08/21/24 18:14 Last Admin: 08/21/24 18:23 Dose: 4 mg Documented By: RADHA Ondansetron HCl (Ondansetron 4 Mg/2 Ml Inj) 4 mg IV NOW ONE Stop: 08/21/24 18:14 Last Admin: 08/21/24 18:23 Dose: 4 mg Documented By: RADHA Vital Signs Vital signs: Vital Signs - 8 hr 08/21/24 17:08 08/21/24 17:41 08/21/24 17:41 Temperature 98.4 F Pulse Rate 103 H 107 H Respiratory Rate 16 Blood Pressure 129/80 139/82 Pulse Oximetry 96 96 Oxygen Delivery Method Room Air 08/21/24 18:00 08/21/24 18:00 08/21/24 18:30 Temperature Pulse Rate 98 H 94 H Respiratory Rate 20 18 Blood Pressure 130/79 Pulse Oximetry 94 93 Oxygen Delivery Method 08/21/24 18:30 Temperature Pulse Rate Respiratory Rate Blood Pressure 130/74 Pulse Oximetry Oxygen Delivery Method MDM - Abdominal Pain Differential Diagnosis Differential diagnosis: Likely abdominal pain, constipation and small bowel obstruction Lab Data 08/21/24 17:50 08/21/24 17:50 Labs: Lab Results 08/21/24 08/21/24 Range/Units 17:50 18:20 WBC 9.4 (4.5-11.0) X10^3/uL RBC 5.28 H (4.0-5.2) X10^6/uL Hgb 14.6 (12.0-16.0) g/dL Hct 44.3 (36-46) % MCV 84.0 (80-100) fL MCH 27.8 (26-34) PG MCHC 33.0 (30-36) % RDW 26.2 H (11.6-14.8) % Plt Count 275 (150-400) X10^3/uL Neut % (Auto) 77.8 H (50-75) % Lymph % (Auto) 14.2 L (25-40) % Emmet % (Auto) 6.6 (3-14) % Eos % (Auto) 0.9 L (2-4) % Baso % (Auto) 0.5 (0-2) % Neut # (Auto) 7300 H (9592-1332) /uL Lymph # (Auto) 1300 (6893-0873) /uL Emmet # (Auto) 600 (0-900) /uL Eos # (Auto) 100 (0-450) /uL Baso # (Auto) 0 (0-100) /uL RBC Morphology See below Anisocytosis 3+ H D PT 12.7 H (9.4-12.5) SECONDS INR 1.1 (0.9-1.3) Sodium 137 (137-145) mmol/L Potassium 4.1 (3.4-5.1) mmol/L Chloride 104 (98-107) mmol/L Carbon Dioxide 23 (22-32) mmol/L BUN 16 (7-17) mg/dL Creatinine 0.70 (0.52-1.04) mg/dL Estimated GFR > 60 (>60) mL/min BUN/Creatinine Ratio 22.9 H (6-22) Glucose 113 H (80-110) mg/dL Lactate 1.2 (0.7-2.1) mmol/L Calcium 10.3 H (8.4-10.2) mg/dL Total Bilirubin 0.5 (0.2-1.3) mg/dL AST 25 (14-36) IU/L ALT 18 (<35) IU/L Alkaline Phosphatase 77 (38-126) U/L Total Protein 7.6 (6.3-8.2) g/dL Albumin 4.6 (3.5-5.0) g/dL Globulin 3.0 (1.7-4.1) g/dL Albumin/Globulin Ratio 1.5 (1.0-2.8) Lipase 104 (23-300) U/L Urine RBC None seen (0-5/HPF) Urine WBC None seen (0-5/HPF) Ur Squamous Epith Cells None seen (0-5/HPF) Urine Bacteria None seen (None) Ur Culture Indicated? Cult not indicated Vol Urine Centrifuged 10ml (spun) Point of care testing: Urine Dip Bedside Urine Glucose Negative Bedside Urine Bilirubin - Negative Bedside Urine Ketone ++ 40 Urine Specific [place] 1.000 Bedside Urine Occult Blood - Negative Bedside Urine pH 5.0 Bedside Urine Protein +/- 15 Bedside Urine Urobilinogen - Negative Bedside Urine Nitrite - Negative Bedside Urine Leukocytes - Negative Esterase Imaging Data CT scan - abdomen/pelvis: Radiologist's Impression: PROCEDURE: CT CHEST ABD PEL W CON INDICATIONS: New onset abdominal mass / History of cancer TECHNIQUE: After the administration of intravenous contrast, 5 mm thick sections acquired from the lung apices to the symphysis. 5 mm coronal and sagittal reformats were performed, with additional 7 mm MIP reformats through the lungs. For radiation dose reduction, the following was used: automated exposure control, adjustment of mA and/or kV according to patient size. COMPARISON: None. FINDINGS: Image quality: Diagnostic Lungs and pleura: Scattered scarring and atelectasis. No pleural effusions. Micro nodule versus granuloma in the right lateral lung, attention on follow-up . Possible small subpleural nodule in the right upper lobe measuring 5-6 millimeters, . Suspected thick atelectasis at the lingula. Mediastinum, heart, and esophagus: Small amount contrast in the distal esophagus possibly from reflux or slow transit No pathologic lymph nodes by size criteria. A left-sided SVC is also seen in addition to the right. Chest wall and thyroid: Unremarkable Liver: Subcentimeter lesion in the right lobe (), too small to characterize, possibly a cyst Gallbladder and biliary system: Absent, ectatic CBD measures 6-7 millimeters, likely within normal limits for postsurgical state Pancreas: No ductal dilation Spleen: Nonenlarged Adrenals: No discrete nodules Kidneys: Left renal cyst no solid or complicated lesion. No hydronephrosis. Vessels and lymph nodes: The main portal vein appears patent. No abdominal aortic aneurysm. No pathologic lymph nodes by size criteria. Bowel and peritoneum: No pathologic ascites. Right colonic suture lines. Small-bowel obstruction in the central abdomen with clump bowel loops and transition point. A possible tiny partial hernia is seen in the deep rectus fascia containing a loop of bowel on image 2/138. Body wall: Small fat containing inguinal hernias. Postsurgical changes. Fat containing superior midline ventral hernia also present. Pelvis: Bladder is unremarkable. Reproductive organs are unremarkable on limited CT evaluation. Bones: Spinal curvature. No aggressive appearing osseous lesions. IMPRESSION: Small bowel obstruction with transition in the central abdomen. A possible knuckle of bowel is seen within a small ventral hernia involving only the deep rectus fascia. (2/138) Fat containing superior midline ventral hernia also present. Other findings above. Given oncologic history, consider future dedicated oncologic surveillance imaging. Dictated by: Carmelo Loaiza M.D. on 08/21/2024 at 15:14 Approved by: Carmelo Loaiza M.D. on 08/21/2024 at 15:25 MDM Narrative Medical decision making narrative: Abdominal pain with nausea and vomiting, previous history of small-bowel obstruction from carcinoid tumors. Patient states her last resection was 1 year ago and it was determined that she did not need to have any chemo or radiation after her procedure. Abdomen is soft, there is minimal distention present. There is a small, approximately tennis ball shaped protrusion in the midline upper abdomen, however this is only present when patient attempts to sit up. When she was lying down with her abdomen relaxed this spot disappears and there was no palpable mass present. CT imaging from earlier today reviewed, confirms small bowel obstruction. Pain and nausea medications ordered. Laboratory work is reviewed, WBC count 9.4, hemoglobin 14.6, platelets 275, sodium 137, potassium 4.1, creatinine 0.7, normal liver enzymes. Lab and imaging findings discussed with Dr. Steinberg of General surgery, who will admit the patient to his service for further treatment. 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 Discharge Plan Departure Patient Disposition: Home Clinical Impression: Partial obstruction of small intestine, Ventral hernia, History of malignant carcinoid tumor
[2024-08-21] MEDS: ONDANSETRON 4 MG/2 ML INJ IV ×2 (18:23→20:14)
[2024-08-21] MEDS: MORPHINE 4 MG/ML INJ IV (18:23)
[2024-08-21] MEDS: SODIUM CHLORIDE 0.9% 1,000 ML 1000 ML IV (18:23)
[2024-08-21 18:49] LABS: Lactate (Lactic Acid) 1.2 mmol/L (0.7-2.1)
[2024-08-21 19:00] LABS: Bacteria Urine None Seen; Culture Indicated Urine Cult Not Indicated; RBC Urine None Seen (0-5/HPF); Squamous Epithelial Cell Urine None Seen (0-5/HPF); Urine Volume 10mL (spun); WBC Urine None Seen (0-5/HPF)
--- NOTE | 2024-08-21 19:57 | DI.RAD.S_ITS ---
PROCEDURE: XR GASTROGRAFIN CHALLENGE COMPARISON: [facility], CT, CT CHEST ABD PEL W CON, 08/21/2024, 14:48. INDICATIONS: sbo FINDINGS: 4 hours after the administration of oral contrast material, the majority of the contrast remains in the stomach. However there is dense material in the colon that likely represents oral contrast material. Large volume of stool is seen. Right upper quadrant cholecystectomy clips. Contrast material seen in the bladder related to the prior CT. IMPRESSION: At 4 hours after oral contrast administration, there appears to be a small amount of contrast material within the colon. The majority of the contrast material remains in the stomach. Approved by: Everett Shannon M.D. on 08/22/2024 at 0:54
--- NOTE | 2024-08-21 20:01 | PM.CALLCOV.1 ---
Call Coverage Note Note Date of Patient Contact: 08/21/24 Narrative of Care Provided: 69F hx of bowel resection with SBO. CT and labs reviewed. -NPO -IVF -Gastrografin challenge -NGT if worsening nausea or emesis
[2024-08-21] MEDS: SODIUM CHLORIDE 0.9% 1,000 ML 100 ML IV (20:20)
[2024-08-21] MEDS: HYDROMORPHONE 0.5 MG INJ IV ×2 (20:50→23:22)
[2024-08-22 00:30] VITALS: BP 108/70; PULSE 91; RESP 18; TEMP 35.9; O2SAT 96
[2024-08-22 04:00] VITALS: BP 110/58; PULSE 105; RESP 18; TEMP 37.3; O2SAT 99
[2024-08-22] MEDS: HYDROMORPHONE 0.5 MG INJ IV (04:36)
[2024-08-22] MEDS: SODIUM CHLORIDE 0.9% 1,000 ML 100 ML IV (06:31)
[2024-08-22 06:32] LABS: Add Manual Diff / Slide Review NO; Basophils Absolute Auto 0 /uL (0-100); Basophils Percent Auto 0.2 % (0-2); Eosinophils Absolute Auto 100 /uL (0-450); Eosinophils Percent Auto 1.9 % (2-4); Hematocrit 36.9 % (36-46); Hemoglobin 12.3 g/dL (12.0-16.0); Lymphocytes Absolute Auto 900 /uL (1100-4500); Lymphocytes Percent Auto 10.7 % (25-40); Mean Corpuscular HGB Conc 33.3 % (30-36); Mean Corpuscular Volume 84.2 fL (80-100); Monocytes Absolute Auto 500 /uL (0-900); Monocytes Percent Auto 6.9 % (3-14); Neutrophils Absolute Auto 6400 /uL (1500-7000); Neutrophils Percent Auto 80.3 % (50-75); Platelet Count 227 X10^3/uL (150-400); Red Blood Cell Count 4.39 X10^6/uL (4.0-5.2); Red Cell Distribution Width 25.6 % (11.6-14.8); White Blood Cell Count 7.9 X10^3/uL (4.5-11.0)
[2024-08-22 06:34] LABS: BUN Creatinine Ratio 22.6 (6-22); Blood Urea Nitrogen 14 mg/dL (7-17); Calcium 8.7 mg/dL (8.4-10.2); Carbon Dioxide 24 mmol/L (22-32); Chloride 113 mmol/L (98-107); Estimated Glomerular Filt Rate > 60 mL/min (>60); Glucose 109 mg/dL (80-110); HEMOLYSIS < 15 (0-50); Potassium 4.2 mmol/L (3.4-5.1); Sodium 142 mmol/L (137-145)
[2024-08-22 06:59] LABS: Anisocytosis 1+; Rouleaux 2+
--- NOTE | 2024-08-22 07:22 | PM.HP.1 ---
History of Present Illness History of Present Illness Date Patient Seen: 08/22/24 Time Patient Seen: 12:06 Chief complaint: ct td, obstruction in abd, sent by pcp Narrative: 69 year old woman PMH carcinoid tumor and intussusception who has had previous abdominal surgeries for such presents to the [facility] Emergency Department 08/21/2024 with complaint of abdominal pain. Reports nausea abdominal distention associated with pain. CT abdomen pelvis demonstrates a small-bowel obstruction no free air or free fluid incidentally noted ventral hernia but not pertaining to the source of obstruction. At admission afebrile and without leukocytosis. She received a Gastrografin study overnight which now demonstrates presence of contrast within the colon after 4 hours. She reports feeling better this morning than she did at admission. She has never had a previous small bowel obstruction. [facility] Medical History Intussusception Laceration of scalp History of live Insomnia Fibroids (2002) Hemorrhoids Tinnitus Scoliosis Migraines (~2014) Chronic back pain (~2001) Depression Anxiety Anemia (2002) Hayfever Osteoarthritis Shoulder pain Surgical History History of surgery (08/10/23) Hx of cholecystectomy S/P cholecystectomy S/P small bowel resection Anesthesia History of dilation and curettage (2002) History of laparoscopy Family History Mother Heart disease CVA (cerebral vascular accident) COPD (chronic obstructive pulmonary disease) Brother Liver failure Brother Drowned Grandmother No problems noted. Grandfather No problems noted. Social History marital status: number of children: 5 household members: spouse lives independently: Yes caregiver/support person: Yes (Daughter, Antonia Oscar) education level: other (GED) occupational status: other (retired) Smoking Status: Former smoker alcohol intake: never substance use type: does not use Meds Home Medications and Allergies Home Medications Medication Instructions Recorded Confirmed Type sumatriptan succinate 100 mg tablet See Rx Instructions PO .COMPLEX 10/26/21 08/21/24 Rx #10 tabs meloxicam 15 mg tablet 15 mg PO DAILY Pain #90 tabs 10/20/23 08/21/24 Rx venlafaxine 150 mg 150 mg PO DAILY #30 caps 07/11/24 08/21/24 Rx capsule,extended release 24 hr cyclobenzaprine 5 mg tablet 5 mg PO BID PRN muscle spasm #60 08/14/24 08/21/24 Rx tabs ondansetron HCl 4 mg tablet 4 mg PO Q8-12H PRN nausea and 08/21/24 08/21/24 Rx vomiting #20 tabs Allergies Allergy/AdvReac Type Severity Reaction Status Date / Time aspirin [ASPIRIN] AdvReac Intermediate stomach Verified 08/14/24 09:52 upset ibuprofen [IBUPROFEN] AdvReac Intermediate stomach Verified 08/14/24 09:52 upset codeine [CODEINE] AdvReac Mild doesn't Verified 08/14/24 09:[address] it makes her feel Exam Vital Signs (past 8 hours): - 08/22/24 00:30 08/22/24 04:00 Temperature 96.7 F L 99.1 F Pulse Rate 91 H 105 H Respiratory Rate 18 18 Blood Pressure 108/70 110/58 L Pulse Oximetry 96 99 Oxygen Flow Rate 0 0 Oxygen Delivery Method Room Air Oxygen Flow Rate 0 Narrative Exam Narrative: General adult woman alert oriented no acute distress Chest nonlabored respiration Abdomen distended but compressible. Objective Labs 08/22/24 05:50 08/22/24 05:50 Labs: Laboratory Results - last 24 hr 08/21/24 08/21/24 08/22/24 17:50 18:20 05:50 WBC 9.4 7.9 RBC 5.28 H 4.39 Hgb 14.6 12.3 Hct 44.3 36.9 MCV 84.0 84.2 MCH 27.8 28.0 MCHC 33.0 33.3 RDW 26.2 H 25.6 H Plt Count 275 227 Neut % (Auto) 77.8 H 80.3 H Lymph % (Auto) 14.[address] [place] % (Auto) 6.6 6.9 Eos % (Auto) 0.9 L 1.9 L Baso % (Auto) 0.5 0.2 Neut # (Auto) 7300 H 6400 Lymph # (Auto) [address] [place] # (Auto) 600 500 Eos # (Auto) 100 100 Baso # (Auto) 0 0 RBC Morphology See below See below Anisocytosis 3+ H D 1+ H D Rouleaux 2+ H PT 12.7 H INR 1.1 Sodium 137 142 Potassium 4.1 4.2 Chloride 104 113 H Carbon Dioxide 23 24 BUN 16 14 Creatinine 0.70 0.62 Estimated GFR > 60 > 60 BUN/Creatinine Ratio 22.9 H 22.6 H Glucose 113 H 109 Lactate 1.2 Calcium 10.3 H 8.7 Total Bilirubin 0.5 AST 25 ALT 18 Alkaline Phosphatase 77 Total Protein 7.6 Albumin 4.6 Globulin 3.0 Albumin/Globulin Ratio 1.5 Lipase 104 Urine RBC None seen Urine WBC None seen Ur Squamous Epith Cells None seen Urine Bacteria None seen Ur Culture Indicated? Cult not indicated Vol Urine Centrifuged 10ml (spun) Assessment & Plan Assessment and plan (1) Partial obstruction of small intestine: Status: Acute Assessment & Plan narrative: 69-year-old woman history of prior abdominal surgery admitted with a small-bowel obstruction resolving. Reviewed CT on admission which demonstrates an uncomplicated small-bowel obstruction in the follow up gastrografin study demonstrates presence of contrast within the colon. -clear liquid diet advance as tolerated -anticipate discharge home today -follow up with General surgery in regards to ventral hernia. Time-Based Coding :: [TOTAL MINUTES] spent with patient and on the chart (including review of chart, obtaining history, exam, reviewing outside data, placing orders, documenting exam and treatment plan, and counseling patient) on [DATE].
[2024-08-22 07:40] VITALS: O2SAT 94
[2024-08-22 08:00] VITALS: BP 106/69; PULSE 94; RESP 16; TEMP 36.4; O2SAT 94
[2024-08-22] MEDS: VENLAFAXINE ER 75 MG CAP 150 MG PO (09:19)
[2024-08-22] MEDS: MELOXICAM 7.5 MG TABLET 15 MG PO (09:19)
--- NOTE | 2024-08-22 10:32 | CM.DANOTE ---
Initial DCP Assessment Note Pt is a 69 yo female, resident of [place], history of carcinoid tumor status post resection x2 presents with abdominal pain with nausea and vomiting. Patient with initial SBO which has resolved. Patient expected to be discharged later today. PCP: Rut Mancilla Payer: [employer]/Lillian Reviewed chart, met w/patient to review plan. Patient up indp in room, says she lives alone independently and will have her son transport her home upon discharge. No barriers identified at this time to patient's safe discharge home w/family to assist as needed; close outpatient f/u recommended. CM team will plan to follow clinical course closely in case any DC needs or concerns arise. YUDI Pedersen Discharge Planning/Care Management Discharge Assessment Start: 08/22/24 09:36 Freq: Status: Active Protocol: Document 08/22/24 09:37 SHAHID (Rec: 08/22/24 10:32 SHAHID [id number]) Discharge Planning Assessment Assigned Trousseau Consultant YUDI Echavarria DPOA/Assigned Designee Name cait Hurst Contact Information [phone] Advance Directives? Yes Advance Directives on File No History Provided By Patient,Medical Record Prior Living Arrangements House Type of transporation used prior to Drives own vehicle admit Independent with ADL's Yes Is patient alert and oriented? Yes Barriers to Discharge No Discharge Plan Home Transportation Arrangement Family Referrals Initiated None needed
[2024-08-22 11:00] VITALS: O2SAT 93
[2024-08-22 12:00] VITALS: BP 125/73; PULSE 92; RESP 17; TEMP 36.3; O2SAT 93
[2024-08-22] MEDS: SUMAtriptan 25 MG TABLET 100 MG PO (12:08)
--- NOTE | 2024-08-22 16:26 | PC.NURSE ---
Pt is dressed and ready for discharge home with family. IV has been removed. Went over d/c instructions with Pt and Family-discussed d/c meds, time of last dose, reviewed stroke education, suggested easy to digest foods, and to follow up with her PCP as needed. Pt denied further questions and was taken out via w/c by QUANTITATIVE RESEARCH ANALYST to POV with Family and all belongings.
== END 2024-08-22 16:33 | disposition home or self-care (01) | DRG 389 ==
LOC: ED 17:51 → AC 19:00
PROVIDERS: Emergency Medicine; Admitting Provider Surgery; Emergency Provider Emergency Medicine; PCP Student in an Organized Health Care Education/Training Program; Visit Provider Surgery
DX: K56.600 Partial intestinal obstruction, unspecified as to cause (principal); N25.81 Secondary hyperparathyroidism of renal origin; Z90.49 Acquired absence of other specified parts of digestive tract; Z87.891 Personal history of nicotine dependence; Z87.19 Personal history of other diseases of the digestive system; Z85.030 Personal history of malignant carcinoid tumor of large intestine; R19.00 Intra-abdominal and pelvic swelling, mass and lump, unspecified site; K40.90 Unilateral inguinal hernia, without obstruction or gangrene, not specified as recurrent; K43.9 Ventral hernia without obstruction or gangrene; Z85.9 Personal history of malignant neoplasm, unspecified
CPT/HCPCS: 36415; 71260; 74018; 74177; 80048; 80053; 81003; 81015; 83605; 83690; 85025; 85610; 93005; 93010; 96361; 96374; 96375; 96376; 99284; 99285; J1171; J2270; J2405; Q9967

== ENCOUNTER 2024-11-14 08:58 | Day surgery (SDC) | payer MEDICARE, OTHER, SELFPAY ==
[2024-08-21 21:03] VITALS: BMI 26.8
[2024-11-07 14:28] VITALS: BMI 25.7
[2024-11-14] VITALS (31 sets, daily range): BP systolic 94–148; BP diastolic 61–96; PULSE 18–118; RESP 9–97; TEMP 36.2–37; O2SAT 92–98; BMI 25.7
--- NOTE | 2024-11-14 09:36 | PM.PREOP ---
Pre-operative Note COVID-19 COVID-19 status: Not tested Interval Note History & Physical reviewed/Exam performed by Physician: Yes Changes to H&P: No
[2024-11-14] MEDS: CEFAZOLIN 2 GM/100 ML PREMIX 100 ML IV (10:09)
[2024-11-14] MEDS: BUPIVACAINE 0.5% (PF) 10 ML VIAL INJ (10:16)
[2024-11-14] MEDS: LIDOCAINE 1% W/EPI 20ML 20 ML INJ (10:16)
--- NOTE | 2024-11-14 12:26 | P.OP_ITS ---
Operative Date/Time/Diagnoses Date of procedure: 11/14/24 Time of procedure: 12:26 Pre-op diagnosis: Incarcerated incisional hernia Post-op diagnosis: same Procedure & Clinicians Procedure: Open repair of incarcerated incisional hernia with retrorectus placement of 3 in x 6 in Bard polypropylene mesh Adjacent tissue transfer of bilateral posterior rectus sheath measuring 15 cm x 15 cm, at least 225 sq cm Same procedure as scheduled: Yes Indications: Incisional hernia with Polish cheese defect measuring 7.7 cm in craniocaudal dimension and 3 cm in lateral dimension on CT scan Surgeon: Alverto Khan Opticianry Teacher: Vu Garcia Click Yes if Unassisted: No Anesthesia Type: General Operative Notes Findings: Bowel containing incisional hernia Closure Type: primary Specimen(s): none sent Prosthetic devices, grafts, tissues, transplants, or devices: 3 in x 6 in Bard flat mesh Estimated Blood Loss (mL): 50 Procedure in detail: Consent was obtained. General anesthesia was induced. Total of 40 mL of 1% lidocaine with epinephrine and 0.25% Marcaine plain were infiltrated around the hernia site performing a field block bilateral rectus block. Ten blade was used to make an incision through her old scar. Her belly button had been excised at an old surgery and this was carried down proximally 15 cm from where the belly button would have been toward the xiphoid. Sharp dissection was then carried down to the anterior rectus fascia. Metzenbaum scissors were used to carefully dissect the hernia sac away from the skin. The peritoneum was entered in a safe location. The hernia sac was excised and the underlying bowel was carefully dissected away from the peritoneum using Metzenbaum dissection. After complete enterolysis, bilateral rectus sheaths were incised along the medial aspect of the posterior rectus sheath. Perforators were preserved. Adjacent tissue transfer was performed to create the plane to protect the mesh in the retrorectus space using combination of Metzenbaum scissors and Bovie electrocautery. Well-vascularized segments of posterior sheath was freed to approximate the posterior midline without tension. 2-0 PDS was then used to close the posterior sheath in a running fashion. This space measured at least 15 x 15 cm prior to closure. A 3 x 6 in mesh was then affixed oriented long way in the midline. 3-0 Vicryl was used to affix the corners of the mesh to the posterior sheath. Tisseel was then used to coat the mesh. Good hemostasis was achieved. 0 Ethibond was used to close the anterior rectus in a running fashion. 3-0 Vicryl was used to close Lizzy's fascia. Skin was closed with 4- 0 Monocryl and Dermabond. The patient was placed in abdominal binder and sent to PACU in good condition for anticipated same-day discharge. Complications: none Post-operative Condition: stable Disposition: PACU Plan for aftercare: Home with family
[2024-11-14] MEDS: hydrOXYzine 50 MG/ML INJ 25 MG IM (13:24)
[2024-11-14] MEDS: OXYCODONE/ACETAMINOPHEN 5/325 TABLET 1 TAB PO ×2 (13:32→16:33)
[2024-11-14] MEDS: CELECOXIB 200 MG CAPSULE PO (13:36)
[2024-11-14] MEDS: HYDROMORPHONE 1 MG INJ IV ×3 (13:51→14:15)
[2024-11-14] MEDS: ONDANSETRON 4 MG/2 ML INJ IV (14:24)
--- NOTE | 2024-11-14 14:30 | SUR.PHASEI ---
Dr. Khan called and made aware that the patients heart rate has been 115bmp and that she is still requiring oxygen to maintain her oxygen sats above 90%. EKG has been ordered per Dr. Khan. Anthony Mahan with anaesthesia made aware and no new orders at this time.
--- NOTE | 2024-11-14 14:54 | EKG_ITS ---
[address] [address] Test Date: 2024-11-14 Pat Name: Kim Rico Department: [facility] Room: Gender: Female Hide Trimmer: LEANA : 1955 Requested By: Order Number: [id number] Reading MD: Dalton Mahajan Measurements Intervals [place] Rate: 116 P: 34 [place]: 156 QRS: -46 QRSD: 82 T: 40 QT: 354 QTc: 492 Interpretive Statements Sinus tachycardia Left axis deviation Inferior infarct , age undetermined Cannot rule out Anterior infarct , age undetermined Electronically Signed On 11-14-2024 23:46:21 PST by Dalton Mahajan
--- NOTE | 2024-11-14 17:23 | PM.EVENT ---
Event Note Date Patient Seen: 11/14/24 Time Patient Seen: 17:23 Event Note (Rapid Response, Code, or fall): Patient was slow to wake up from anesthesia. Still has O2 requirement, drops to 89% on Room air. Will admit overnight for pain control and incentive spirometry coaching.
[2024-11-14] MEDS: ACETAMINOPHEN 325 MG TABLET 650 MG PO ×2 (17:55→23:57)
[2024-11-14] MEDS: VENLAFAXINE ER 75 MG CAP 150 MG PO (20:49)
[2024-11-14] MEDS: DOCUSATE 100 MG CAPSULE PO (20:49)
[2024-11-14] MEDS: OXYCODONE IR 5 MG TABLET PO ×2 (20:49→23:58)
[2024-11-14] MEDS: methocarbamoL 500 MG TABLET PO (20:53)
[2024-11-15 03:00] VITALS: O2SAT 4
[2024-11-15 03:50] VITALS: BP 102/59; PULSE 93; RESP 18; TEMP 36.2; O2SAT 94
[2024-11-15 05:00] VITALS: O2SAT 93
[2024-11-15] MEDS: PANTOPRAZOLE DR 20 MG TABLET PO (06:22)
[2024-11-15] MEDS: ACETAMINOPHEN 325 MG TABLET 650 MG PO (06:22)
[2024-11-15 07:58] VITALS: BP 106/62; PULSE 88; RESP 19; TEMP 36.3; O2SAT 96
[2024-11-15] MEDS: MELOXICAM 7.5 MG TABLET 15 MG PO (08:07)
[2024-11-15] MEDS: LIDOCAINE 5% PATCH 1 EACH TOP (08:08)
[2024-11-15] MEDS: methocarbamoL 500 MG TABLET PO (08:08)
[2024-11-15] MEDS: DOCUSATE 100 MG CAPSULE PO (08:08)
--- NOTE | 2024-11-15 08:54 | PM.PNPO.1 ---
Subjective Subjective Date Patient Seen: 11/15/24 Time Patient Seen: 08:54 Interval history: Patient is eating a regular breakfast. Feels much better. He is now on room air. Pain is much more tolerable. Exam Vital Signs (past 8 hours): - 11/15/24 03:00 11/15/24 03:50 11/15/24 05:00 Temperature 97.2 F L Pulse Rate 93 H Respiratory Rate 18 Blood Pressure 102/59 L Pulse Oximetry 4 L 94 93 Oxygen Delivery Method Nasal Cannula Nasal Cannula Oxygen Flow Rate 1 1 0.5 11/15/24 07:58 Temperature 97.3 F L Pulse Rate 88 Respiratory Rate 19 Blood Pressure 106/62 Pulse Oximetry 96 Oxygen Delivery Method Oxygen Flow Rate 0 Oxygen Delivery Method Nasal Cannula Oxygen Flow Rate 0 Narrative Exam Narrative: Abdominal binder in place [facility] Medical History (Updated 10/18/24 @ 16:33 by Rut Mancilla MD) Intussusception Laceration of scalp History of live Insomnia Fibroids (2002) Hemorrhoids Tinnitus Scoliosis Migraines (~2014) Chronic back pain (~2001) Depression Anxiety Anemia (2002) Hayfever Osteoarthritis Shoulder pain Surgical History (Updated 11/07/24 @ 14:30 by Mirela Patel RN) History of hysteroscopy (10/28/23) History of surgery (08/10/23) Hx of cholecystectomy S/P cholecystectomy S/P small bowel resection Anesthesia History of dilation and curettage (2002) History of laparoscopy Family History Mother Heart disease CVA (cerebral vascular accident) COPD (chronic obstructive pulmonary disease) Brother Liver failure Brother Drowned Grandmother No problems noted. Grandfather No problems noted. Social History (Updated 09/14/24 @ 10:39 by Leann Baez MA) marital status: number of children: 5 household members: none lives independently: Yes caregiver/support person: Yes (Daughter, Antonia Oscar) education level: other (GED) occupational status: other (retired) Smoking Status: Former smoker alcohol intake: former substance use type: does not use Assessment & Plan Post-op Postoperative Procedures: Procedures Operation Date: 11/14/24 10:15 Actual Procedure Side Surgeon p Hernia Repair Incisional Alverto Khan MD Postoperative day: 1 Postoperative status: doing well Postoperative status narrative: Respiratory status has improved. Okay for discharge. Time Spent With Patient Time with patient: less than 15 minutes
[2024-11-15 09:00] VITALS: O2SAT 94
[2024-11-15] MEDS: OXYCODONE IR 5 MG TABLET PO (09:52)
--- NOTE | 2024-11-15 11:31 | CM.DANOTE ---
Initial DCP Assessment Visit Note Reviewed EMR and team rounds for patient's medical status and updates. Met with patient at bedside to introduce self and role. Patient was found to be alert and oriented. Patient was friendly and cooperative during our conversation. Patient lives in her own home and has been fully independent with self care and ADLs up until this time. She has a walker and a cane available to her while she is healing from her hernia surgery. Patient will be staying at her daughter's house for at least the first few weeks of her recovery and up to six weeks if needed. She normally drives her own car but during her recovery her daughter Alan will be transporting the patient. Payor: [employer] PCP: Rut Orozco Patient is a 69 yo female here POD #1 after having surgery to fix an incarcerated hernia. After her surgery on 11/14/24 patient had a rapid HR up to 115 and SPO2 was difficult to keep above 90% without supplemental O2. Today vitals were better and stable, SPO2 was 94%. on room air and HR was 88 bpm. Patient said she was feeling well overall today and she was feeling ready to leave the hospital. Patient will be staying with her daughter Alan for at least the first two weeks and up to six weeks while she is healing. Currently there is not an indication that patient will need home health. If that changes and the patient is feeling worse, patient agreed to reach out to her PCP to discuss home health. Patient has a follow up appt with her surgeon on 11/29/23. No discharge planning needs anticipated at this time. DCP will continue to monitor for any evolving needs in relation to discharging home. Discharge Planning/Care Management CM Discharge Assessment Start: 11/15/24 11:09 Freq: Status: Discharge Protocol: Document 11/15/24 11:10 DERREK (Rec: 11/15/24 11:31 [facility] [id number]) Discharge Planning Assessment Assigned Counter Cutter Navarro Ramsey RN DPOA/Assigned Designee Name Paul Rico (son) Contact Information [phone] Advance Directives? Yes Advance Directives on File Yes History Provided By Patient,Family Member,Medical Record Expected Length of Stay 1 Has Patient been admitted in last 30 No days? Prior Living Arrangements House Comment Patient will be staying with her daugther corinne for up to six weeks upon discharge. shorter if she is doing well enough to return home. Household Members none Type of transporation used prior to Drives own vehicle admit Comment Patient's daughter alan will transport the patient until she resumes driving herself. Independent with ADL's Yes Is patient alert and oriented? Yes Needs Assistance With Home Chores / Shopping Comment Patient has help from her daughter if needed but it is expected that she will be independent. Patient said she would like help with cleaning house and she is not supposed to lift any heave objects for two weeks, daugther will help with home chores and shopping. Caregiver for Another No DME Already Rented / Owned FWW / Walker,Cane Comment No anticipated needs. If patient is not doing well at home she agreed to reach out to PCP to discuss getting home health arranged if needed. Barriers to Discharge No Discharge Plan Home Transportation Arrangement Patient's daughter Alan will transport. Referrals Initiated None needed Additional Comment Patient has arranged follow up visit with surgeon on . Whiteboard Updated in Patient Room with Yes name and ext. # of Counter Cutter Review Status In Process Please Provide Date Initial DC 11/15/24 Assessment Was Performed Pre-Anesthesia Assessment Start: 11/07/24 14:28 Freq: Status: Discharge Protocol: Document 11/07/24 14:28 LB (Rec: 11/07/24 14:51 LB [id number]) Pre-Anesthesia Assessment PAC Comment 11/07/24 Chart review. Patient Information Reviewed Via Chart Review Diagnostic Results BMP/CMP,PT/INR Comment 08/22/24 at . Primary Care Provider Rut Orozco Seen Specialist in Last 12 Months Yes Specialist Seen Emergency,General surgeon, Specimen Accessioner Primary Language Indonesian Preferred Language Indonesian Assistant Signal Maintainer Required No Height 154.94 cm Weight 61.689 kg Body Mass Index (BMI) 25.7 Hx Blood Transfusions Congregational. Anesthesia Review Requested No Background Investigator No alcohol intake former Smoking Status Former smoker Substance Use Type [#R] does not use Patient is completely paralyzed or No completely immobile Is patient on oxygen? No Hx Sleep Apnea No Currently Taking a Beta Roberto No Anti-Coagulant Therapy No Cardiac Testing No Hx Pacemaker/ICD No Gastrointestinal Symptoms Constipation Urinary Catheter Present No Hx Urinary Self Catheterization No Diabetes No Patient No Lactating No Presence of External or Internal Medical No Devices Received a COVID vaccine? Yes Lives With none Patient Discharge Plan Description Return Home Do You Have Any Spiritual Beliefs That Yes: Jehova witness, no blood May Affect Your HC Choices? products Do You Have Any Cultural Practices That Yes May Affect Your HC Choices? Emergency Contact Name Paul Rico - son Emergency Contact Advance Directives? Yes Advance Directives on File Yes Power of Retail Field Representative Yes Power of Retail Field Representative Name Alan Rico - daughter Power of Retail Field Representative
== END 2024-11-15 11:14 | disposition home or self-care (01) ==
LOC: OR 12:44 → AC 16:27
PROVIDERS: PCP Student in an Organized Health Care Education/Training Program; Referring Provider Surgery; Visit Provider Surgery
PROC: (CPT 49596; principal; 2024-11-14 10:15)
DX: K43.0 Incisional hernia with obstruction, without gangrene (principal); K59.09 Other constipation; Z87.891 Personal history of nicotine dependence
CPT/HCPCS: 49596; 15734 ×2; 93005; C1781; C9250; J0690; J1100; J1171; J2250; J2405; J2704; J3010; J3410

== ENCOUNTER → 2025-01-23 11:57 | Outpatient (CLI) | payer MEDICARE, OTHER, SELFPAY ==
[2024-11-29 09:55] VITALS: BMI 25.7
--- NOTE | 2025-01-23 11:59 | DI.RAD.S_ITS ---
PROCEDURE: XR HIP W PEL IF DONE BILAT 2V INDICATIONS: Acute hip pain TECHNIQUE: AP pelvis with lateral view(s) of the left hip(s). COMPARISON: None. FINDINGS: Bones: There are no osseous abnormalities. SI and hip joints: Mild left hip degeneration noted. The right hip and both SI joints are normal. Moderate L5-S1 degenerative disc and facet disease seen. Soft tissues: No soft tissue swelling, calcification or mass. IMPRESSION: Mild left hip degeneration. Moderate L5-S1 degenerative disc and facet disease Dictated by: Francisco J Goldstein M.D. on 01/24/2025 at 11:24 Approved by: Francisco J Goldstein M.D. on 01/24/2025 at 11:25
== END ==
PROVIDERS: PCP Student in an Organized Health Care Education/Training Program; Referring Provider Student in an Organized Health Care Education/Training Program; Visit Provider Student in an Organized Health Care Education/Training Program
DX: M16.12 Unilateral primary osteoarthritis, left hip (principal); M51.379 Other intervertebral disc degeneration, lumbosacral region without mention of lumbar back pain or lower extremity pain; M47.817 Spondylosis without myelopathy or radiculopathy, lumbosacral region; M25.551 Pain in right hip; M25.552 Pain in left hip
CPT/HCPCS: 73521

== ENCOUNTER → 2025-02-11 12:11 | Outpatient (CLI) | payer MEDICARE, OTHER, SELFPAY ==
[2024-11-29 09:55] VITALS: BMI 25.7
[2025-02-11 13:01] LABS: Cholesterol 208 mg/dL (140-199); HDL Cholesterol 59 mg/dL (40-60); LDL Cholesterol Calculated 122 mg/dL (<100); Triglycerides 136 mg/dL (35-150)
[2025-02-11 13:04] LABS: Alanine Aminotransferase 29 IU/L (<35); Albumin 4.4 g/dL (3.5-5.0); Albumin Globulin Ratio 1.7 (1.0-2.8); Alkaline Phosphatase 93 U/L (38-126); Aspartate Aminotransferase 33 IU/L (14-36); BUN Creatinine Ratio 19.2 (6-22); Bilirubin Total 0.6 mg/dL (0.2-1.3); Blood Urea Nitrogen 15 mg/dL (7-17); Calcium 9.5 mg/dL (8.4-10.2); Carbon Dioxide 21 mmol/L (22-32); Chloride 108 mmol/L (98-107); Estimated Glomerular Filt Rate > 60 mL/min (>60); Globulin 2.6 g/dL (1.7-4.1); Glucose 89 mg/dL (70-99); HEMOLYSIS < 15 (0-50); Potassium 4.3 mmol/L (3.4-5.1); Sodium 140 mmol/L (137-145)
[2025-02-11 13:06] LABS: Erythrocyte Sedimentation Rate 14 MM/HR (0-20)
[2025-02-11 13:21] LABS: Free T3, Triiodothyronine Free 3.98 pg/mL (2.77-5.27); Free T4, Direct Thyroxine 0.77 ng/dL (0.78-2.19)
[2025-02-11 13:32] LABS: Thyroid Stimulating Hormone 2.46 uIU/mL (0.47-4.68)
== END ==
PROVIDERS: PCP Student in an Organized Health Care Education/Training Program; Referring Provider Student in an Organized Health Care Education/Training Program; Visit Provider Student in an Organized Health Care Education/Training Program
DX: I10 Essential (primary) hypertension (principal); M25.50 Pain in unspecified joint; L65.9 Nonscarring hair loss, unspecified; L29.9 Pruritus, unspecified; Z85.9 Personal history of malignant neoplasm, unspecified
CPT/HCPCS: 36415; 80053; 80061; 84439; 84443; 84481; 85651

== ENCOUNTER 2025-05-07 13:29 | Emergency (ER) | payer MEDICARE, OTHER, SELFPAY ==
[2024-11-29 09:55] VITALS: BMI 25.7
[2025-05-07] VITALS (8 sets, daily range): BP systolic 131–155; BP diastolic 70–94; PULSE 86–101; RESP 16–26; TEMP 37.2; O2SAT 95–97; BMI 24.3
--- NOTE | 2025-05-07 13:43 | DI.RAD.S_ITS ---
PROCEDURE: XR CHEST 1V INDICATIONS: Chest Pain TECHNIQUE: One view of the chest was acquired. COMPARISON: [facility], CR, XR CHEST 2V, 12/13/2018, 11:49. FINDINGS: Surgical changes and devices: None. Lungs and pleura: Lungs are clear. No pleural effusions or pneumothorax. Mediastinum: Mediastinal contours appear normal. Heart size is normal. Bones and chest wall: No suspicious bony lesions. Overlying soft tissues appear unremarkable. Moderate dextroscoliosis of thoracolumbar spine is seen. IMPRESSION: No acute cardiopulmonary pathology. Dictated by: Jovon Torrez M.D. on 05/07/2025 at 14:13 Approved by: Jovon Torrez M.D. on 05/07/2025 at 14:15
--- NOTE | 2025-05-07 13:43 | EKG_ITS ---
[place] [address] [address] [place] [id number] Test Date: 2025-05-07 Pat Name: Kim Rico Department: [facility] Room: Gender: Female Electrical Construction Project Manager: Long BELLO RN : 1955 Requested By: Order Number: [id number] Reading MD: Edgar Cárdenas Measurements Intervals [place] Rate: 97 P: 31 DC: 128 QRS: -46 QRSD: 72 T: 41 QT: 340 QTc: 431 Interpretive Statements Normal sinus rhythm Possible Left atrial enlargement Left anterior fascicular block Inferior infarct , age undetermined Cannot rule out Anterior infarct , age undetermined Electronically Signed On 05-17-2025 13:42:16 PDT by Edgar Cárdenas
[2025-05-07 14:31] LABS: INR 1.1 (0.9-1.3); Prothrombin Time 13.0 SECONDS (9.4-12.5)
[2025-05-07 14:34] LABS: PTT Partial Thromboplastin Tim 30 SECONDS (25.1-36.5)
[2025-05-07 14:35] LABS: Add Manual Diff / Slide Review NO; Hematocrit 44.4 % (36-46); Hemoglobin 15.5 g/dL (12.0-16.0); Lymphocytes Absolute Auto 1500 /uL (1100-4500); Mean Corpuscular HGB Conc 34.9 % (30-36); Mean Corpuscular Hemoglobin 31.7 PG (26-34); Mean Corpuscular Volume 90.8 fL (80-100); Platelet Count 287 X10^3/uL (150-400)
[2025-05-07 14:38] LABS: Alanine Aminotransferase 46 IU/L (<35); Albumin 4.2 g/dL (3.5-5.0); Albumin Globulin Ratio 1.3 (1.0-2.8); Alkaline Phosphatase 83 U/L (38-126); Blood Urea Nitrogen 22 mg/dL (7-17); Calcium 9.4 mg/dL (8.4-10.2); Carbon Dioxide 22 mmol/L (22-32); Chloride 109 mmol/L (98-107); Creatine Kinase 40 U/L (30-135); Estimated Glomerular Filt Rate > 60 mL/min (>60); Globulin 3.2 g/dL (1.7-4.1); Glucose 97 mg/dL (70-99); HEMOLYSIS < 15 (0-50); Lipase 221 U/L (23-300); Magnesium 2.3 mg/dL (1.6-2.3); Potassium 4.5 mmol/L (3.4-5.1); Sodium 139 mmol/L (137-145); Total Protein 7.4 g/dL (6.3-8.2)
[2025-05-07 14:49] LABS: NT-proBNP (BNP-Adult 18+) 65 pg/mL (<125); Troponin I < 0.012 ng/mL (0.01-0.034)
[2025-05-07 16:44] LABS: Troponin I < 0.012 ng/mL (0.01-0.034)
--- NOTE | 2025-05-07 23:57 | ED_ITS ---
HPI - Arrhythmia/Palpitations General Chief Complaint: Arrhythmia/Palpitations Stated Complaint: sent by pcp for possible heart attack Time Seen by Provider: 05/07/25 15:24 Source: patient Mode of arrival: Family Vehicle History of Present Illness HPI narrative: This 70 yo female presents wit her daughter with the history that she had two twinge like pains in her mid sternal area earlier in the dayt. Almost like a palpitation,. Saw her provider and she did not like the look of the EKG and sent the patient in for work-up for an ID The patient had no shortness of breath or leg pains. The pain was not accompanied by shortness of breath,. The patient has no history of ID. PMH of depression and anxiety and migraines. Related Data Previous Rx's ?Medication ?Instructions ?Recorded meloxicam 15 mg tablet 15 mg PO DAILY Pain #90 tabs 10/20/23 methocarbamol 500 mg tablet 500 mg PO TID #90 tabs 01/01 clobetasol 0.05 % topical ointment 1 applic topical DA JOLANTA Vulvar 01/23/25 irritation #30 grams venlafaxine 150 mg 150 mg PO DAILY #30 caps capsule,extended release 24 hr hydroxyzine HCl 10 mg tablet 10 - 20 mg (1 - 2 x 10 mg ) PO 03/15/25 BEDTIME #120 tabs sumatriptan succinate 100 mg tablet 100 mg PO .COMPLEX #10 tabs 04/29/25 Allergies Allergy/AdvReac Type Severity Reaction Status Date / Time aspirin (ASPIRIN) AdvReac Intermediate stomach Verified 05/07/25 13:55 upset ibuprofen (IBUPROFEN) AdvReac Intermediate stomach Verified 05/07/25 13:55 upset codeine (CODEINE) AdvReac Mild doesn't Verified 05/07/25 13:[address] it makes her feel Review of Systems Constitutional Comments: Malaise secondary to some minimal twinge like pains, questionably palpitations Eyes Eyes: Reports system reviewed and no additional complaints, except as documented ENT Ears, Nose, Mouth, and Throat: Reports system reviewed and no additional complaints, except as documented Cardiovascular Comments: mid-strnal minimal twinge-like pains , no radiation. Respiratory Comments: No shortness of breath Gastrointestinal Comments: No epigastric pain Musculoskeletal Comments: No leg pain or edema Neurologic Neurologic: Reports system reviewed and no additional complaints, except as documented Patient History Medical History (Updated 05/07/25 @ 18:15 by Hannah Durand MD) Endometrial polyp Abnormal vaginal bleeding with endometrial thickness greater than 5 mm present on transvaginal ultrasound in postmenopausal patient Intussusception Laceration of scalp History of live Insomnia Fibroids (2002) Hemorrhoids Tinnitus Scoliosis Migraines (~2014) Chronic back pain (~2001) Depression Anxiety Anemia (2002) Hayfever Osteoarthritis Shoulder pain Surgical History (Updated 01/10/25 @ 13:54 by Rut Mancilla MD) History of hysteroscopy (10/28/23) History of surgery (08/10/23) Hx of cholecystectomy S/P cholecystectomy S/P small bowel resection Anesthesia History of dilation and curettage (2002) History of laparoscopy Family History Mother Heart disease CVA (cerebral vascular accident) COPD (chronic obstructive pulmonary disease) Brother Liver failure Brother Drowned Grandmother No problems noted. Grandfather No problems noted. Social History (Updated 09/14/24 @ 10:39 by Leann Baez MA) marital status: number of children: 5 household members: none lives independently: Yes caregiver/support person: Yes (Daughter, Antonia Oscar) education level: other occupational status: other alcohol intake: former substance use type: does not use alcohol intake frequency: other Exam Initial Vital Signs Initial Vital Signs: Vital Signs Temperature 98.9 F 05/07/25 13:45 Pulse Rate 95 H 05/07/25 13:45 Respiratory Rate 16 05/07/25 13:45 Blood Pressure 131/94 H 05/07/25 13:45 Pulse Oximetry 95 05/07/25 13:45 Oxygen Delivery Method Room Air 05/07/25 13:45 Const Other: Depressed appearing elderly female in no severe distress [facility] Head: normal to inspection Eyes General: Yes appearance normal, both eyes and all related structures Neck Neck: normal visual inspection and full ROM Chest Chest: normal inspection of the chest Resp Effort & Inspection: normal respiratory effort Auscultation: clear to auscultation bilaterally Cardio Rate: regular rate Rhythm: regular rhythm GI Inspection: normal to inspection Other: no tenderness Neuro General: patient alert, patient awake and patient oriented x3 Extrem General: normal to inspection and full ROM Other: No calf tenderness or edema Course Course Course Narrative: This 70 yo female presents with the complaint of minimal twing-like pains almost palpitation sensation mid sternum this am. SAw her provider who thought her EKG looked suspicious and sent her to ER . Lab revealed two normal sets of troponins and no other significant lab. CXR -negative . EKG revealed Sinus rhythm with poor R wave but no evidence of STEMI,. Patient was referred to [facility] for nuclear stress and her regualr provider can set this up. . Patient sent home on no meds as pain very minimal. Shoudl return if gets worse, Orders Ordered: ED Orders 05/07/25 16:09 Trop I [Troponin I] Stat 05/07/25 16:25 EKG-12 Lead Stat Discontinued Medications Aspirin (Aspirin 81 Mg Chew Tab) 324 mg PO NOW ONE Stop: 05/07/25 13:44 Last Admin: 05/07/25 14:23 Dose: Not Given Documented By: LM Vital Signs Vital signs: Vital Signs - 8 hr 05/07/25 16:00 05/07/25 16:00 05/07/25 16:30 Pulse Rate 96 H 93 H Respiratory Rate 18 26 H Blood Pressure 155/73 H Pulse Oximetry 95 95 Oxygen Delivery Method Room Air 05/07/25 16:30 05/07/25 17:00 05/07/25 17:00 Pulse Rate 88 Respiratory Rate 19 Blood Pressure 145/70 H 149/77 H Pulse Oximetry 95 Oxygen Delivery Method 05/07/25 17:30 05/07/25 17:30 05/07/25 18:00 Pulse Rate 91 H 86 Respiratory Rate 20 19 Blood Pressure 138/71 Pulse Oximetry 96 97 Oxygen Delivery Method Room Air 05/07/25 18:00 Pulse Rate Respiratory Rate Blood Pressure 150/83 H Pulse Oximetry Oxygen Delivery Method MDM - Arrhythmia/Palpitations Lab Data 05/07/25 14:17 05/07/25 14:17 Labs: Lab Results 05/07/25 05/07/25 Range/Units 14:17 16:09 WBC 8.4 (4.5-11.0) X10^3/uL RBC 4.89 (4.0-5.2) X10^6/uL Hgb 15.5 (12.0-16.0) g/dL Hct 44.4 (36-46) % MCV 90.8 (80-100) fL MCH 31.7 (26-34) PG MCHC 34.9 (30-36) % RDW 13.3 (11.6-14.8) % Plt Count 287 (150-400) X10^3/uL Neut % (Auto) 72.1 (50-75) % Lymph % (Auto) 17.7 L (25-40) % [place] % (Auto) 8.5 (3-14) % Eos % (Auto) 1.2 L (2-4) % Baso % (Auto) 0.5 (0-2) % Neut # (Auto) 6000 (4896-6739) /uL Lymph # (Auto) 1500 (9271-4791) /uL [place] # (Auto) 700 (0-900) /uL Eos # (Auto) 100 (0-450) /uL Baso # (Auto) 0 (0-100) /uL PT 13.0 H (9.4-12.5) SECONDS INR 1.1 (0.9-1.3) APTT 30 (25.1-36.5) SECONDS Sodium 139 (137-145) mmol/L Potassium 4.5 (3.4-5.1) mmol/L Chloride 109 H (98-107) mmol/L Carbon Dioxide 22 (22-32) mmol/L BUN 22 H (7-17) mg/dL Creatinine 0.68 (0.52-1.04) mg/dL Estimated GFR > 60 (>60) mL/min BUN/Creatinine Ratio 32.4 H (6-22) Glucose 97 (70-99) mg/dL Calcium 9.4 (8.4-10.2) mg/dL Magnesium 2.3 (1.6-2.3) mg/dL Total Bilirubin 0.5 (0.2-1.3) mg/dL AST 35 (14-36) IU/L ALT 46 H (<35) IU/L Alkaline Phosphatase 83 (38-126) U/L Total Creatine Kinase 40 (30-135) U/L Troponin I < 0.012 < 0.012 (0.01-0.034) ng/mL NT-Pro-B Natriuret Pep 65 (<125) pg/mL Total Protein 7.4 (6.3-8.2) g/dL Albumin 4.2 (3.5-5.0) g/dL Globulin 3.2 (1.7-4.1) g/dL Albumin/Globulin Ratio 1.3 (1.0-2.8) Lipase 221 (23-300) U/L Discharge Plan Departure Patient Disposition: Home Clinical Impression: Palpitations Activity Restrictions/Additional Instructions: Get primary provider to get nuclear stress test in near future 1-2 weeks. At this time no evidence of ID on EKG and two negative sets of cardiac enzymes,. Prescriptions: No Action hydroxyzine HCl 10 mg tablet 10 - 20 mg PO BEDTIME Qty: 120 3RF meloxicam 15 mg tablet 15 mg PO DAILY Qty: 90 3RF venlafaxine 150 mg capsule,extended release 24hr 150 mg PO DAILY Qty: 30 3RF sumatriptan succinate 100 mg tablet 100 mg PO .COMPLEX Qty: 10 2RF Rx Instructions: take 1 tab at onset of headache; if no relief may repeat 1 tab in 2hr; max = 2 tabs/24 hrs PO clobetasol 0.05 % ointment 1 applic topical DAILY Qty: 30 2RF Rx Instructions: Once a night for 1 month, alternating nights for 1 month, then twice weekly methocarbamol 500 mg tablet 500 mg PO TID Qty: 90 0RF Referrals: Rut Mancilla MD [Primary Care Provider, Family Practice] Stand Alone Forms: Patient Portal/API
== END 2025-05-07 18:27 | disposition home or self-care (01) ==
PROVIDERS: Emergency Provider Emergency Medicine; PCP Student in an Organized Health Care Education/Training Program
DX: R00.2 Palpitations (principal)
CPT/HCPCS: 36415; 71045; 80053; 82550; 83690; 83735; 83880; 84484; 85025; 85610; 85730; 93005; 99283; 99284